=== PATIENT | female | born 1980 | race Caucasian/White ===

== ENCOUNTER 2018-08-07 13:03 | Emergency (ER) | payer OTHER, MEDICAID, SELFPAY ==
[2018-08-07] VITALS (12 sets, daily range): BP systolic 125–147; BP diastolic 66–91; PULSE 66–86; RESP 13–21; TEMP 36.8; O2SAT 96–99
--- NOTE | 2018-08-07 13:15 | ED.GENADUL_ITS ---
Discharge Plan Disposition Patient Disposition: HOME Condition: Stable Discharge Details Chief Complaint: Dizzy/Sync Clinical Impression: Syncope Reason For Visit: NATTY Primary Care Provider: Yomaira Gonzales ED Provider: Flory Dobbins Home Meds and New Rx's Prescriptions: Continued loratadine [Claritin RediTabs] 10 MG tablet,disintegrating 10 mg PO DAILY RF: 0 sertraline 100 mg Tablet 150 mg PO DAILY RF: 0 acyclovir 400 mg Tablet 400 mg PO BID RF: 0 ProAir HFA 90 mcg/actuation Hfa Aerosol Inhaler 1 - 2 puff Inhalation PRN PRNRF: 0 Discharge Instructions Instructions: Syncope (ED) Additional Instructions: Please return immediately to the emergency department if you develop any new or worsening symptoms or if you become otherwise concerned. It is extremely important that you make an appointment to be seen in follow-up for this visit as soon as possible by your primary care doctor. Referrals: Yomaira Gonzales [Primary Care Provider] - Discharge Data Discharge Date/Time-TO BE ENTERED AT DEPARTURE: 08/07/18 14:20 Medical Decision Making Abril Tellez 37-year-old woman who had 2 syncopal episodes today, first while having blood drawn, second within 10 minutes of first episode; patient previously in her usual state of health. On exam patient is very well and nontoxic appearing. Suspect vasovagal syncope. Doubt arrhythmia. Exam/history is not consistent with CVA, sepsis, ACS, PE. Plan for EKG, urine test. Offered IV placement for IV fluid hydration and screening labs, patient declines IV placement given recent syncope with blood draw She reports that she is able to drink fluid easily at this time. Given my low suspicion for metabolic/light disturbance, cardiogenic syncope, I believe it is reasonable to proceed without labs at this time and plan for oral hydration. Patient taking p.o. without issue. test negative. EKG nondiagnostic. Patient reports feeling much better. Orthostatic vital signs okay. Patient w alking about the emergency department without issue, requesting discharge. Likely diagnosis of vasovagal syncope secondary to phlebotomy. I had a lengthy discussion with the patient regarding return to emergency department precautions and importance of outpatient follow-up with her primary care doctor. She verbalizes understanding of the plan is amenable. Medical Records Medical records reviewed: Yes I reviewed the patient's medical records. Lab Data Lab results reviewed: Yes I reviewed the patient's lab results. 08/07/18 13:44 Urine - Reflex from Ua Urine Culture - Final Gram Positive Tonya,Mixed Laboratory Tests Range/Units 08/07/18 08/07/18 11:30 13:44 Creatinine (0.55-1.02) mg/dL 0.84 Estimated GFR/1.73 m2 (mL/min/1.73m2) >= 60.00 Urine Color (Yellow) Yellow Urine Clarity Clear Urine pH (5-8) 6.5 Ur Specific [place] (1.005-1.025) 1.015 Urine Protein (Negative) mg/dL Trace H Urine Ketones (Negative) mg/dL Negative Urine Blood (Negative) Negative Urine Nitrite (Negative) Negative Urine Bilirubin (Negative) Negative Urine Urobilinogen (Up TO 0.2) EU/dL 0.2 Ur Leukocyte Esterase (Negative) Negative Urine RBC (0-2) 0-2 Urine WBC (0-5) HPF 5-10 Ur Epithelial Cells (Negative) HPF Few Urine Crystals (Negative) HPF Negative Urine Bacteria (Negative) HPF Few Urine Casts (Negative) LPF Negative Urine Mucus (Negative) Negative Ur Culture Indicated? Yes Urine Glucose (Negative) mg/dL Negative ECG Data Attestation: I personally reviewed and interpreted this ECG (s) as follows: Interpretation: EKG shows sinus rhythm at 63, normal axis, no acute ischemic changes, nondiagnostic EKG HPI General Mode of arrival: EMS . Date/Time Provider Initiated Documentation: 08/07/18 13:14 . Limitations to Documentation: no limitations . Information obtained by: patient, RN/MD, EMS, RN notes reviewed and old records reviewed . HPI Narrative: Abril Tellez is a 37-year-old man with history of anxiety, depression think the emergency department for syncopal episode. Patient was having routine blood draw as an outpatient. She reports that while blood was being drawn, she began to feel nauseous, have tingling in her hands, and had tunnel vision. She felt as if she would faint. Per phlebotomy staff, patient did faint. Both of consciousness for less than 1 minute. Upon patient regaining consciousness, she was kept flat for a few minutes. When staff tried to sit her up again, patient again had same presyncopal symptoms and had a repeat syncopal episode. Second loss of consciousness was less than 1 minute. EMS was called. Patient reports that she currently feels somewhat lightheaded, but better than she did during the blood draw. Patient reports that prior to the blood draw she had no symptoms and was feeling in her usual state of health. She has had no recent illnesses. Has been eating and drinking as usual, although did not eat as much as usual this morning due to being in a hurry. Related Data Home Medications Medication Instructions Recorded Confirmed loratadine [Claritin RediTabs] 10 mg PO DAILY tab-cap 02/06/16 08/07/18 ProAir HFA 1 - 2 puff INHALATION PRN PRN 08/07/18 08/07/18 acyclovir 400 mg PO BID 08/07/18 08/07/18 sertraline 150 mg PO DAILY 08/07/18 08/07/18 Allergies Allergy/AdvReac Type Severity Reaction Status Date / Time No Known Allergies Allergy Unverified 08/07/18 13:12 General Stated Complaint: Dizzy/Sync MARCIN: 2 Review of Systems Review of Systems Constitutional: denies fevers Eyes: denies eye pain ENT: denies facial pain, dental pain, sore throat Cardiovascular: denies chest pain, edema, palpitations Respiratory: denies SOB, cough GI: denies abdominal pain, vomiting, diarrhea, reports nausea now resolved : denies flank pain MSK: denies back pain, neck pain, arthralgias, myalgias Skin: denies rash Neuro: denies headaches, weakness PFSH Surgical History section Tubal Ligation, Social History Smoking and Tabacco status: Former Tobacco Use Exam Narrative Exam Narrative: Constitutional: well and [id number], pleasant, conversing normally HENT: head atraumatic/normocephalic/normal inspection, mucous membranes moist Eyes: conjunctiva normal, sclera normal, pupils 3mm b/l Neck: no stridor, normal ROM, trachea midline Chest: normal inspection Resp: normal work of breathing, LCTAB Cardio: normal rate, normal rhythm, no murmur appreciated GI: abdomen soft, non-tender, non-distended Back: normal inspection, no rash Skin: warm, dry, normal color, no rash Neuro: alert, not altered, grossly non-focal, normal tone Ext: no edema, no posterior calf tenderness palpation Psych: normal mood, normal affect, normal behavior Course Vital Signs Temperature 36.8 C 08/07/18 13:05 Pulse 66 08/07/18 13:05 Respiratory Rate 16 08/07/18 13:05 Blood Pressure 129/71 08/07/18 13:05 Pulse Oximetry 98 08/07/18 13:05 Temperature 36.8 C 08/07/18 13:05 Temperature Source Skin 08/07/18 13:05 Pulse 66 08/07/18 13:05 Respiratory Rate 16 08/07/18 13:05 Blood Pressure 129/71 08/07/18 13:05 Blood Pressure Position Supine 08/07/18 13:05 Pulse Oximetry 98 08/07/18 13:05 Oxygen Delivery Method Room Air 08/07/18 13:05 Oxygen Flow Rate 0 08/07/18 13:05 Pain Level 0 08/07/18 13:05
[2018-08-07 15:13] LABS: Bilirubin Negative (Negative); Blood Negative (Negative); Clarity Clear; Glucose Negative (Negative); Ketones Negative (Negative); Leukocyte Esterase Negative (Negative); Nitrite Negative (Negative); Specific Gravity 1.015 (1.005-1.025); Urobilinogen 0.2 EU/dL (Up TO 0.2); pH 6.5 (5-8)
[2018-08-07 15:30] LABS: Bacteria Few HPF (Negative); C & S Indicated? Yes; Casts Negative LPF (Negative); Crystals Negative HPF (Negative); Epithelial Cells Few HPF (Negative); Mucus Negative (Negative); RBC 0-2 (0-2)
[2018-08-07 21:29] LABS: CREATININE 0.84 mg/dL (0.55-1.02)
== END 2018-08-07 14:20 | disposition home or self-care (01) ==
PROVIDERS: Emergency Provider Student in an Organized Health Care Education/Training Program; PCP Nurse Practitioner Family
DX: R55 Syncope and collapse (principal)
CPT/HCPCS: 36415; 81025; 93005; 99284; 81003; 81015; 82565; 87086; 93010

== ENCOUNTER 2019-01-24 18:38 | Emergency (ER) | payer OTHER, MEDICAID, SELFPAY ==
[2019-01-24] VITALS (33 sets, daily range): BP systolic 124–146; BP diastolic 71–91; PULSE 62–74; RESP 11–29; TEMP 36.8; O2SAT 93–100
[2019-01-24 19:16] LABS: Abs Immature Grans 0.02 k/cumm (0.0-0.09); Absolute Basophil Count 0.03 k/cumm (0.0-0.2); Absolute Eosinophil Count 0.24 k/cumm (0.0-0.7); Absolute Lymphocyte Count 1.71 k/cumm (1.2-3.4); Absolute Monocyte Count 0.52 k/cumm (0.11-0.7); Absolute Neutrophil Count 7.84 k/cumm (1.2-6.7); Basophils % 0.3; Eosinophils % 2.3; HGB 12.6 g/dL (12.0-15.5); Immature Grans % 0.2; Lymphocytes % 16.5; Mean Corp. HGB Concentration 33.2 g/dL (32.0-36.0); Mean Corpuscular Hemoglobin 27.9 pg (27.0-33.0); Mean Corpuscular Volume 84.3 fL (80-95); Mean Platelet Volume 9.6 fL (8.0-11.0); Neutrophils % 75.7; Platelet Count 287 x1000/uL (130-400); RBC 4.51 m/cumm (4.00-5.20); RBC Distribution Width 12.9 % (11.7-14.6); White Blood Cell Count 10.36 k/cumm (4.4-10.8)
[2019-01-24] MEDS: Ondansetron 4 MG/2 ML VIAL IVP (19:19)
[2019-01-24] MEDS: Normal Saline 1,000 ML 1000 ML IV (19:19)
[2019-01-24 19:34] LABS: ALT 28 U/L (12-78); AST 18 U/L (15-37); Albumin 3.9 g/dL (3.4-5.0); Alkaline Phosphatase 96 U/L (46-116); Anion Gap 9.5 mmol/L (3-11); BUN 12 mg/dL (7-18); Bilirubin, Total 0.2 mg/dL (0.2-1.0); CO2 27.5 mmol/L (21.0-32.0); CREATININE 0.85 mg/dL (0.55-1.02); Calcium 9.4 mg/dL (8.5-10.1); Chloride 103 mmol/L (98-107); Glucose 109 mg/dL (70-100); Potassium 3.7 mmol/L (3.5-5.1); Sodium 140 mmol/L (136-145); Total Protein 7.7 g/dL (6.4-8.2)
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
--- NOTE | 2019-01-24 19:38 | DI.CT_ITS ---
SYMPTOM/DIAGNOSIS: RIGHT SIDED FACIAL TRAUMA NONCONTRAST HEAD CT: No intracranial hemorrhage or skull fracture is seen. The ventricles are normal in size. There is no evidence of mass or fluid collection. The sinuses and mastoid air cells appear clear. IMPRESSION: Negative head CT. MAXILLOFACIAL CT: The globes are intact. No orbital or facial fractures are seen. There is some soft tissue swelling lateral to the right orbit. There is mucous retention at the floors of both maxillary sinuses. The temporomandibular joints appear intact. IMPRESSION: Soft tissue swelling near the right orbit. No evidence of facial fracture. Incidental chronic sinus disease.
[2019-01-24 19:55] LABS: ETHANOL BLOOD < 3.0 mg/dL (<3)
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
[2019-01-24] MEDS: Ketorolac 15 MG/ML VIAL IVP (20:20)
== END 2019-01-24 21:02 | disposition home or self-care (01) ==
PROVIDERS: Emergency Provider Nurse Practitioner Family; PCP Nurse Practitioner Family
DX: S06.0X0A Concussion without loss of consciousness, initial encounter (principal); S00.211A Abrasion of right eyelid and periocular area, initial encounter; W22.8XXA Striking against or struck by other objects, initial encounter; Y93.16 Activity, rowing, canoeing, kayaking, rafting and tubing; R11.0 Nausea; R51 Headache
CPT/HCPCS: 36415; 80053; 96361; 96374; 96375; 99284; 70450; 70486; 80320; 85025; J1885; J2405

== ENCOUNTER 2020-09-04 12:21 | Observation (INO) | payer OTHER, MEDICAID, SELFPAY ==
[2020-09-04] VITALS (17 sets, daily range): BP systolic 111–151; BP diastolic 59–103; PULSE 64–97; RESP 14–20; TEMP 36–37; O2SAT 92–98
--- NOTE | 2020-09-04 12:24 | W.ED.GENAD ---
Discharge Plan Disposition Patient Disposition: [facility] INPATIENT Condition: Stable Discharge Details Clinical Impression: Acute appendicitis Admit Date/Time: 09/04/20 18:46 Admit Provider: Michael Goff Attending Provider: Michael Goff Primary Care Provider: Yomaira Gonzales ED Provider: Iliana Diez Discharge Data Discharge Date/Time-TO BE ENTERED AT DEPARTURE: 09/04/20 17:25 Medical Decision Making 40-year-old female with a history of obesity, , tubal ligation presents for right-sided abdominal pain since yesterday. Sent from [facility] to rule out possible appendicitis. She is afebrile and appears nontoxic. Abdomen obese. She is tender in the right upper and right lower quadrant. Differential diagnosis includes cholelithiasis, cholecystitis, appendicitis, gastroenteritis, ovarian cyst, diverticulitis. Will place an IV, bolus IV fluids, screening labs, urinalysis, CT abdomen and pelvis and ultrasound. We will give Toradol and Zofran and reassess. Labs reviewed. White blood cell count 12. Remainder of labs unremarkable. Urinalysis negative. Ultrasound negative for acute findings. CT notes findings consistent with appendicitis. Case discussed with surgeon on-call Dr. Goff who will come to the ED with plan for OR. Agrees with Adolfon. Case discussed with patient at bedside. She then began crying, hyperventilating and appeared to be having a panic attack. Patient states she is fearful of surgery. Will order a dose of Ativan and morphine. Patient states she will contact her family. Medical Records Medical records reviewed: Yes I reviewed the patient's medical records. Imaging Data Radiologic Study: Radiologist's impression: US ABDOMEN LIMITED CLINICAL HISTORY: RUQ abd pain, r/o cholecystitis TECHNIQUE: Ultrasound abdomen performed using standard protocol. COMPARISON: No exams were available for comparison FINDINGS: ABDOMINAL AORTA AND IVC: Visualized portions normal caliber. PANCREAS: Normal where visualized. LIVER: There is diffuse increased echogenicity consistent with fatty infiltration. The liver measures 20 cm in length. Hepatopedal flow in the Portal Vein. GALLBLADDER: No evidence of cholelithiasis. No evidence of wall thickening. No pericholecystic fluid identified. BILIARY SYSTEM: Common bile duct measures < 7 mm. No intrahepatic biliary ductal dilation. KEATING'S SIGN: Negative. RIGHT KIDNEY: No evidence of renal calculi. No evidence of hydronephrosis. No renal mass or cyst identified. ASCITES: None seen. IMPRESSION: 1. Hepatic steatosis and hepatomegaly. 2. Findings were discussed with the emergency department on the date of the examination. CT ABDOMEN PELVIS W CLINICAL HISTORY: RUQ/RLQ abd pain, r/o appendicitis, sbo TECHNIQUE: Imaging Protocol: Axial computed tomography images with coronal and sagittal reformatted images were created and reviewed CONTRAST MATERIAL: Intravenous: Omnipaque 350 Contrast volume:100 mL Oral: No COMPARISON: CT ABD PELVIS WITH CONTRAST from 09/09/2016 FINDINGS: ABDOMEN: Lung Bases: Normal where visualized. Liver: There is decreased attenuation of the liver suggestive of fatty infiltration. No measurable mass. Portal, Superior Mesenteric, and Splenic Veins: Unremarkable. Gallbladder and Biliary Tract: No radiodense calculus or dilation. Pancreas: Normal density, no abnormal calcifications or inflammatory process. Spleen: Normal. Adrenals: No masses seen. Kidneys: Normal size, contour and axis. No radiodense stones or obstructive uropathy. No masses seen. Abdominal Aorta: Abdominal portion non-dilated. Bowel: No obstruction or bowel wall thickening. The appendix is thickened measuring 1 cm in diameter. Mild inflammatory stranding is seen in the right lower quadrant. The findings are suggestive of acute appendicitis. No appendicoliths is seen no abscess or free air. Mild diverticulosis of the sigmoid colon but no evidence of acute diverticulitis. Peritoneal Cavity: No ascites, collection or mesenteric inflammatory response. No free air. Lymph Nodes: Within normal limits. Bones: Within normal limits for the patient's age. Soft Tissues: Small fat containing umbilical hernia. PELVIS: Bladder: Symmetric distention, no gross wall thickening. Reproductive Organs: Bilateral functional ovarian cysts. The largest is on the left ovary and measures 2.6 cm. Lymph Nodes: Within normal limits. Bones: Within normal limits for the patient's age. IMPRESSION: 1. Distended appendix to 1.0 cm in diameter with periappendiceal inflammatory changes suggestive of acute appendicitis. No abscess, free air or appendicoliths. 2. Findings were discussed with the emergency department on the date of the examination. Lab Data Lab results reviewed: Yes I reviewed the patient's lab results. Labs: Laboratory Tests Range/Units 09/04/20 09/04/20 09/04/20 12:37 12:50 12:50 WBC (4.4-10.8) 10^3/uL 12.93 H RBC (3.93-5.22) 10^6/uL 4.85 Hgb (11.2-15.7) g/dL 13.5 Hct (36.0-46.0) % 40.9 MCV (80-95) fL 84.3 MCH (27.0-33.0) pg 27.8 MCHC (32.0-36.0) % 33.0 RDW (11.7-14.6) % 12.8 Plt Count (130-400) 10^3/uL 373 MPV (8.0-11.0) fL 9.7 Immature Gran % 0.5 Neutrophils % 66.1 Lymphocytes % 25.8 Monocytes % 5.4 Eosinophils % 1.7 Basophils % 0.5 Nucleated RBC % % 0 Absolute Neutrophils (1.2-6.7) 10^3/uL 8.55 H Absolute Lymphocytes (1.2-3.4) 10^3/uL 3.34 Absolute Monocytes (0.1-0.8) 10^3/uL 0.70 Absolute Eosinophils (0.0-0.7) 10^3/uL 0.22 Absolute Basophils (0.0-0.2) 10^3/uL 0.06 Sodium (136-145) mmol/L 138 Potassium (3.5-5.1) mmol/L 3.6 Chloride (98-107) mmol/L 101 Carbon Dioxide (21.0-32.0) mmol/L 24.3 Anion Gap (3-11) mmol/L 12.7 H BUN (7-18) mg/dL 9 Creatinine (0.55-1.02) mg/dL 0.8 Estimated GFR/1.73 m2 (mL/min/1.73m2) >= 60.00 Glucose (74-106) mg/dL 104 Calcium (8.5-10.1) mg/dL 8.9 Magnesium (1.8-2.4) mg/dL 2.1 Total Bilirubin (0.2-1.0) mg/dL 0.4 AST (15-37) U/L 15 ALT (14-59) U/L 30 Alkaline Phosphatase (46-116) U/L 109 Troponin I (<0.06) ng/mL < 0.05 Total Protein (6.4-8.2) g/dL 8.2 Albumin (3.4-5.0) g/dL 4.0 Lipase (73-393) U/L 96 Urine Color (Yellow) Yellow Urine Clarity (Clear) Clear Urine pH (5-8) 5.5 Ur Specific [place] (1.005-1.025) >= 1.030 H Urine Protein (Negative) mg/dL Negative Urine Ketones (Negative) mg/dL Negative Urine Blood (Negative) Negative Urine Nitrite (Negative) Negative Urine Bilirubin (Negative) Negative Urine Urobilinogen (Up TO 0.2) EU/dL 0.2 Ur Leukocyte Esterase (Negative) Negative Urine Glucose (Negative) mg/dL Negative HPI General Mode of arrival: ambulatory. Date/Time Provider Initiated Documentation: 09/04/20 12:22. Limitations to Documentation: no limitations. Information obtained by: patient. HPI Narrative: Patient is a 40-year-old female with a history of obesity, , tubal ligation presents with abdominal pain since yesterday. Patient states her abdominal pain started in the upper abdomen and then moved to the right mid and lower quadrants today. She states the abdominal pain feels sharp, constant and worse with movement. She states the pain is currently 3/10. She has not taken any medication for pain. She states her last bowel movement was yesterday and small but denies any diarrhea or bleeding. She admits to nausea but denies any vomiting. She denies fever, urinary symptoms, vaginal discharge, known exposure to STDs, recent travel, recent surgery or recent known exposure to coronavirus. Related Data Home Medications Medication Instructions Recorded Confirmed loratadine [Claritin RediTabs] 10 mg PO DAILY tab-cap 02/06/16 09/04/20 acyclovir 400 mg PO BID 08/07/18 09/04/20 albuterol sulfate [ProAir HFA] 1 - 2 puff INHALATION PRN PRN 08/07/18 09/04/20 sertraline 150 mg PO DAILY 08/07/18 09/04/20 ondansetron 4 mg PO Q8H PRN #10 tab 01/24/19 09/04/20 oxycodone-acetaminophen [Endocet] 1 tab PO Q4H PRN #14 tab 09/04/20 Previous Rx's Medication Instructions Recorded ondansetron 4 mg PO Q8H PRN #10 tab 01/24/19 oxycodone-acetaminophen [Endocet] 1 tab PO Q4H PRN #14 tab 09/04/20 Allergies Allergy/AdvReac Type Severity Reaction Status Date / Time No Known Allergies Allergy Unverified 09/04/20 12:30 General MARCIN: 3 Review of Systems All systems reviewed & are unremarkable except as noted in HPI and below Constitutional Constitutional: Reports as per HPI, Denies chills and Denies fever(s) Eyes Eyes: Denies blurry vision ENT Ears, Nose, Mouth, and Throat: Denies dizziness, Denies sore throat and Denies throat swelling Cardiovascular Cardiovascular: Denies chest pain and Denies dyspnea Respiratory Respiratory: Denies cough and Denies dyspnea Gastrointestinal Gastrointestinal: Reports abdominal pain, Denies diarrhea and Denies vomiting Genitourinary Genitourinary: Denies hematuria and Denies dysuria Musculoskeletal Musculoskeletal: Denies back pain and Denies numbness Integumentary/Breasts Skin/Breast: Denies lesions and Denies rash Neurologic Neurologic: Denies dizziness, Denies localized weakness and Denies numbness Allergic/Immunologic Allergic/Immunologic: Denies throat swelling [facility] Medical History Obesity Surgical History section Tubal Ligation, Social History Smoking/Tobacco Use Status: Former Tobacco Use Smoking risk assessment performed?: Yes Alcohol Intake: never Drug use: Daily Substance use type: marijuana Do you feel safe at home: Yes Do you feel safe in your relationship?: Yes Exam Const General: cooperative, healthy appearing and no acute distress [facility] Head: normal to inspection Face and sinus: normal facial exam Eyes General: appearance normal, both eyes and all related structures EOM: EOM intact bilaterally Neck Neck: normal visual inspection and No submandibular swelling Lymphatic: no lymphadenopathy noted Chest Chest: normal inspection of the chest and no tenderness Resp Effort & Inspection: normal respiratory effort and able to speak in complete sentences Auscultation: clear to auscultation bilaterally Cardio Rate: regular rate Rhythm: regular rhythm GI Inspection: normal to inspection and obesity Palpation: soft, not firm, not rigid and tender in the RLQ and in the RUQ Auscultation: hypoactive bowel sounds Skin General skin exam: no rashes or lesions noted Neuro General: patient alert, patient awake and patient oriented x3 Cognition: normal cognition Speech: speech normal Motor: muscle tone normal throughout Sensory Exam: no sensory deficits noted Extrem General: normal to inspection, full ROM, capillary refill normal, no calf tenderness bilaterally and no edema Psych Appearance: grossly normal Mental Status: mental status grossly normal Speech and Movement: speech and movement normal Affect: normal affect
[2020-09-04 12:44] LABS: Bilirubin Negative (Negative); Blood Negative (Negative); Clarity Clear (Clear); Glucose Negative (Negative); Ketones Negative (Negative); Leukocyte Esterase Negative (Negative); Nitrite Negative (Negative); Specific Gravity >= 1.030 (1.005-1.025); Urobilinogen 0.2 EU/dL (Up TO 0.2); pH 5.5 (5-8)
--- NOTE | 2020-09-04 12:45 | DI.US_ITS ---
EXAM: US ABDOMEN LIMITED CLINICAL HISTORY: RUQ abd pain, r/o cholecystitis TECHNIQUE: Ultrasound abdomen performed using standard protocol. COMPARISON: No exams were available for comparison FINDINGS: ABDOMINAL AORTA AND IVC: Visualized portions normal caliber. PANCREAS: Normal where visualized. LIVER: There is diffuse increased echogenicity consistent with fatty infiltration. The liver measure s 20 cm in length. Hepatopedal flow in the Portal Vein. GALLBLADDER: No evidence of cholelithiasis. No evidence of wall thickening. No pericholecystic fluid identified. BILIARY SYSTEM: Common bile duct measures < 7 mm. No intrahepatic biliary ductal dilation. KEATING'S SIGN: Negative. RIGHT KIDNEY: No evidence of renal calculi. No evidence of hydronephrosis. No renal mass or cyst id entified. ASCITES: None seen. IMPRESSION: 1. Hepatic steatosis and hepatomegaly. 2. Findings were discussed with the emergency department on the date of the examination. DATA REPOSITORY:
--- NOTE | 2020-09-04 12:45 | DI.CT_ITS ---
EXAM: CT ABDOMEN PELVIS W CLINICAL HISTORY: RUQ/RLQ abd pain, r/o appendicitis, sbo TECHNIQUE: Imaging Protocol: Axial computed tomography images with coronal and sagittal reformatted images were created and reviewed CONTRAST MATERIAL: Intravenous: Omnipaque 350 Contrast volume:100 mL Oral: No COMPARISON: CT ABD PELVIS WITH CONTRAST from 09/09/2016 FINDINGS: ABDOMEN: Lung Bases: Normal where visualized. Liver: There is decreased attenuation of the liver suggestive of fatty infiltration. No measurable ma ss. Portal, Superior Mesenteric, and Splenic Veins: Unremarkable. Gallbladder and Biliary Tract: No radiodense calculus or dilation. Pancreas: Normal density, no abnormal calcifications or inflammatory process. Spleen: Normal. Adrenals: No masses seen. Kidneys: Normal size, contour and axis. No radiodense stones or obstructive uropathy. No masses seen. Abdominal Aorta: Abdominal portion non-dilated. Bowel: No obstruction or bowel wall thickening. The appendix is thickened measuring 1 cm in diameter. Mild inflammatory stranding is seen in the right lower quadrant. The findings are suggestive of ac mari appendicitis. No appendicoliths is seen no abscess or free air. Mild diverticulosis of the sigm oid colon but no evidence of acute diverticulitis. Peritoneal Cavity: No ascites, collection or mesenteric inflammatory response. No free air. Lymph Nodes: Within normal limits. Bones: Within normal limits for the patient's age. Soft Tissues: Small fat containing umbilical hernia. PELVIS: Bladder: Symmetric distention, no gross wall thickening. Reproductive Organs: Bilateral functional ovarian cysts. The largest is on the left ovary and measur es 2.6 cm. Lymph Nodes: Within normal limits. Bones: Within normal limits for the patient's age. IMPRESSION: 1. Distended appendix to 1.0 cm in diameter with periappendiceal inflammatory changes suggestive of a cute appendicitis. No abscess, free air or appendicoliths. 2. Findings were discussed with the emergency department on the date of the examination. RADIATION DOSE DELIVERED: 1,690.13mGy.cm Total DLP DATA REPOSITORY: All CT scans at this facility are submitted to the National Radiology Data Registry (NRDR) Dose Index Registry (DIR) with the [employer] (ACR). RADIATION OPTIMIZATION: All CT scans at this facility use at least one of these dose optimization te chniques: automated exposure control; mA and/or kV adjustment per patient size (includes targeted exa ms where dose is matched to clinical indication); or iterative reconstruction.
[2020-09-04] MEDS: Normal Saline Flush 10 ML SYR IVP ×4 (12:50→20:32)
[2020-09-04] MEDS: Normal Saline 1,000 ML 1000 ML IV (12:50)
[2020-09-04 12:53] LABS: Abs Immature Grans 0.06 10^3/uL (0.0-0.06); Absolute Basophil Count 0.06 10^3/uL (0.0-0.2); Absolute Eosinophil Count 0.22 10^3/uL (0.0-0.7); Absolute Lymphocyte Count 3.34 10^3/uL (1.2-3.4); Absolute Neutrophil Count 8.55 10^3/uL (1.2-6.7); Basophils % 0.5; Eosinophils % 1.7; HCT 40.9 % (36.0-46.0); HGB 13.5 g/dL (11.2-15.7); Immature Grans % 0.5; Lymphocytes % 25.8; MCH 27.8 pg (27.0-33.0); MCV 84.3 fL (80-95); MPV 9.7 fL (8.0-11.0); Monocytes % 5.4; Neutrophils % 66.1; Nucleated RBC 0 %; Platelet Count 373 10^3/uL (130-400); RBC 4.85 10^6/uL (3.93-5.22); RDW 12.8 % (11.7-14.6); RDW-SD 38.7 fL; WBC 12.93 10^3/uL (4.4-10.8)
[2020-09-04 13:09] LABS: ALT 30 U/L (14-59); AST 15 U/L (15-37); Alkaline Phosphatase 109 U/L (46-116); Anion Gap 12.7 mmol/L (3-11); BUN 9 mg/dL (7-18); Bilirubin, Total 0.4 mg/dL (0.2-1.0); CO2 24.3 mmol/L (21.0-32.0); CREATININE 0.8 mg/dL (0.55-1.02); Calcium 8.9 mg/dL (8.5-10.1); Chloride 101 mmol/L (98-107); Glucose 104 mg/dL (74-106); Lipase 96 U/L (73-393); Magnesium 2.1 mg/dL (1.8-2.4); Potassium 3.6 mmol/L (3.5-5.1); Sodium 138 mmol/L (136-145); Total Protein 8.2 g/dL (6.4-8.2)
[2020-09-04 13:10] LABS: Troponin I < 0.05 ng/mL (<0.06)
[2020-09-04] MEDS: Ondansetron 4 MG/2 ML VIAL IVP ×2 (13:12→20:31)
[2020-09-04] MEDS: Ketorolac 30 MG/ML VIAL IVP (13:12)
[2020-09-04] MEDS: Normal Saline - Diluent 50 ML VIAL IV (15:37)
[2020-09-04] MEDS: Omnipaque 350 MG/ML 50 ML BTL IJ ×2 (15:38→15:39)
[2020-09-04] MEDS: LORazepam 2 MG/ML VIAL 0.5 MG IVP (16:07)
[2020-09-04] MEDS: PIPERACILLIN/TAZO 3.375 GM in Normal Saline 50 ML IVPB (16:20)
--- NOTE | 2020-09-04 16:22 | NUR.NOTE ---
Surgeon at bedside. patient medicated per MD order. 02 saturation decreased to 90 % RA, 2lpm nasal cannula applied O2 sat increased to 98% Nursing Note:
--- NOTE | 2020-09-04 16:55 | W.PM.HP.N ---
Date of service: 09/04/20 Time of Service: 16:31 Assessment and Plan Assessment and plan (1) Acute appendicitis: Start date: 09/04/20 Status: Acute Assessment and plan: 1) CT shows inflamed and dilated appendix, no perforation or free fluid 2) zosyn given 3) IV morphine and ativan given 4) to OR for emergency laparscopic appendectomy, possible open. risks include bleeding and leak. Patient in agreement with the plan of care History of Present Illness History of Present Illness Chief Complaint: abdominal pain Narrative: patient with abdominal pain. pain is in the RLQ. Started as mid/upper pain yesterday. Briefly relieved but then returned throughout the day today. Worse in RLQ. described as severe, no prior history. associated nausea, no vomiting or diarrhea. nothing makes it better or worse. Asked by ER to see re: acute appendicitis. Review of Systems Constitutional Constitutional: Denies fever(s) and Denies weakness Eyes Eyes: Denies change in vision and Denies loss of vision ENT Ears, Nose, Mouth, and Throat: Denies dysphagia and Denies sore throat Cardiovascular Cardiovascular: Denies chest pain and Denies dyspnea Respiratory Respiratory: Denies chest congestion, Denies cough and Denies dyspnea Gastrointestinal Gastrointestinal: Reports abdominal pain, Denies dysphagia, Denies diarrhea and Reports nausea Genitourinary Genitourinary: Denies difficulty voiding Musculoskeletal Musculoskeletal: Reports atrophy and Reports deformity Integumentary/Breasts Skin/Breast: Denies erythema and Denies rash Neurologic Neurologic: Denies loss of vision and Denies weakness Psychiatric Psychiatric: Reports anxiety [facility] Medical History Obesity Surgical History section Tubal Ligation, Social History Smoking/Tobacco Use Status: Former Tobacco Use Smoking risk assessment performed?: Yes Alcohol Intake: never Drug use: Daily Substance use type: marijuana Do you feel safe at home: Yes Do you feel safe in your relationship?: Yes Meds Home Medications and Allergies Allergies Allergy/AdvReac Type Severity Reaction Status Date / Time No Known Allergies Allergy Unverified 09/04/20 12:30 Home Medications Medication Instructions Recorded Confirmed Type loratadine [Claritin RediTabs] 10 mg PO DAILY tab-cap 02/06/16 09/04/20 History acyclovir 400 mg PO BID 08/07/18 09/04/20 History albuterol sulfate [ProAir HFA] 1 - 2 puff INHALATION PRN PRN 08/07/18 09/04/20 History sertraline 150 mg PO DAILY 08/07/18 09/04/20 History ondansetron 4 mg PO Q8H PRN #10 tab 01/24/19 09/04/20 Rx Exam Const General: cooperative and no acute distress Nutritional Appearance: obese Orientation: alert, awake and oriented x3 HENMT Head: normal to inspection, normocephalic and atraumatic Eyes General: appearance normal, both eyes and all related structures Sclera: sclerae normal Chest Chest: normal inspection of the chest and no crepitus Resp Effort & Inspection: normal respiratory effort and able to speak in complete sentences Cardio Rate: regular rate Rhythm: regular rhythm GI Inspection: normal to inspection, no edema, non-distended, obesity and no visible herniation Palpation: soft and tender in the RLQ and at McBurney's point; with no rebound tenderness Skin General skin exam: no rashes or lesions noted and elasticity normal Extrem General: normal to inspection and full ROM Psych Appearance: grossly normal and well kempt Speech and Movement: speech and movement normal Mood: anxious mood Results Labs Result diagrams: 09/04/20 12:50 09/04/20 12:50 Labs: Laboratory Results - last 24 hr 09/04/20 09/04/20 09/04/20 12:37 12:50 12:50 WBC 12.93 H RBC 4.85 Hgb 13.5 Hct 40.9 MCV 84.3 MCH 27.8 MCHC 33.0 RDW 12.8 Plt Count 373 MPV 9.7 Immature Gran % 0.5 Neutrophils % 66.1 Lymphocytes % 25.8 Monocytes % 5.4 Eosinophils % 1.7 Basophils % 0.5 Nucleated RBC % 0 Absolute Neutrophils 8.55 H Absolute Lymphocytes 3.34 Absolute Monocytes 0.70 Absolute Eosinophils 0.22 Absolute Basophils 0.06 Sodium 138 Potassium 3.6 Chloride 101 Carbon Dioxide 24.3 Anion Gap 12.7 H BUN 9 Creatinine 0.8 Estimated GFR/1.73 m2 >= 60.00 Glucose 104 Calcium 8.9 Magnesium 2.1 Total Bilirubin 0.4 AST 15 ALT 30 Alkaline Phosphatase 109 Troponin I < 0.05 Total Protein 8.2 Albumin 4.0 Lipase 96 Urine Color Yellow Urine Clarity Clear Urine pH 5.5 Ur Specific [place] >= 1.030 H Urine Protein Negative Urine Ketones Negative Urine Blood Negative Urine Nitrite Negative Urine Bilirubin Negative Urine Urobilinogen 0.2 Ur Leukocyte Esterase Negative Urine Glucose Negative Last Vital Signs Temp 98.6 F 09/04/20 16:49 Pulse 64 09/04/20 16:49 Resp 16 09/04/20 16:49 BP 116/66 09/04/20 16:49 Pulse Ox 97 09/04/20 16:49 COVID-19 Screening Have you, or household traveled for leisure in last 14 days?: No Had IN PERSON contact w/suspected or confirmed C-19 person: No
[2020-09-04] MEDS: Lactated Ringers 1,000 ML 30 ML IV ×2 (17:30→23:32)
--- NOTE | 2020-09-04 18:23 | APP_PTH ---
PATIENT: Abril Tellez LOC: U#:[id number] AGE/SX: 40/F ROOM: RE09/04/[address]: Michael Goff MD : 1980 BED: A DIS: 09/05/2020 SPEC #: [id number] RECD: 09/05/20 12:36 STATUS: LOPEZ REQ #: [id number] CURLY: 09/04/20 18:[address]: Michael Goff DEPT: Surgical Specimen RECD BY: Lisandra Head ENTERED: 09/05/20 12:37 SP TYPE: Appendix OTHR DR: Yomaira Gonzales Tissues: 1 - APPENDIX NOT INCIDENTAL Procedures: GROSS AND MICRO LEVEL 3 Comments: [id number]
[2020-09-04] MEDS: Lidocaine 1% Multi-Dose 50 ML VIAL (18:33)
--- NOTE | 2020-09-04 18:39 | W.PM.OP ---
Date of service: 09/04/20 Time of Service: 18:00 Operative Note Operative Note DATE OF PROCEDURE: 09/04/20 PRE-OP DIAGNOSIS: acute appendicitis POST-OP DIAGNOSIS: same PROCEDURE: laparoscopic emergency appendectomy SURGEON: Michael Goff ANESTHESIA TYPE: General LMA/ETT Refer to Anesthesia Record ESTIMATED BLOOD LOSS: 3.0 PATHOLOGY: other (appendectomy) COMPLICATIONS: None Patient was transported to: observation Patient's condition: stable Indications: acute appendicitis Findings: thickened and inflamed appendix Procedure Description: supine, patient prepped/draped sterily and timeout performed. veress needle entry performed at pham's point with neg saline drop and 8mmHg opening. optiview technique used to gain access through 1.5 cm supraumbilical transverse incision. no entry injury seen. 5mm ports placed at suprapubic and LLQ area under direct vision. lower midline omental adnesions taken down with ligasure. cecum was mobilized off the lateral abdominal wall and the appendix was identified. adherence to TI was dissected bluntly and carefully. the mesoappendix was divided with the ligasure. endostapler was placed across the base of the appendix and fired. staple line appeared intact and bowel healthy. appendix placed in an endocatch bag and removed from abdomen. final inspection revealed no abnormality. transfascial incision closed with 0 vicryl figure of 8. skin closed with 4-0 monocryl. patient awakened and taken to PACU in stable condition. all counts correct.
--- NOTE | 2020-09-04 19:00 | W.PM.DSUDISC ---
Discharge Plan Disposition Patient Disposition: HOME Condition: Stable Discharge Details Attending Provider: Michael Goff Primary Care Provider: Yomaira Gonzales Home Meds and New Rx's Prescriptions: New oxycodone-acetaminophen [Endocet] 5-325 mg tablet 1 tab PO Q4H PRNQty: 14 RF: 0 No Action loratadine [Claritin RediTabs] 10 MG tablet,disintegrating 10 mg PO DAILY RF: 0 sertraline 100 mg Tablet 150 mg PO DAILY RF: 0 acyclovir 400 mg Tablet 400 mg PO BID RF: 0 albuterol sulfate [ProAir HFA] 90 mcg/actuation Hfa Aerosol Inhaler 1 - 2 puff Inhalation PRN PRNRF: 0 ondansetron 4 mg tablet,disintegrating 4 mg PO Q8H PRN (Reason: nausea and vomiting) Qty: 10 RF: 0 Discharge Instructions Instructions: Laparoscopic Appendectomy (DC) DS: Diagnosis Discharge Diagnosis (1) Acute appendicitis: Status: Acute
[2020-09-04] MEDS: fentaNYL 100 MCG/2 ML VIAL IVP ×2 (19:20→19:30)
[2020-09-04] MEDS: Acyclovir 400 MG TAB PO (20:31)
[2020-09-04] MEDS: HYDROmorphone 2 MG/ML VIAL 0.5 MG IVP (20:31)
[2020-09-04 20:41] LABS: Source Nasal/Nares
[2020-09-04 22:33] LABS: COVID-19 PCR Negative (Negative)
[2020-09-05] MEDS: HYDROcodone 5/Acetaminophen 325 TAB PO ×2 (02:53→08:18)
[2020-09-05 04:02] VITALS: BP 126/78; PULSE 66; RESP 18; TEMP 36.5; O2SAT 95
[2020-09-05 08:03] VITALS: BP 117/71; PULSE 70; RESP 18; TEMP 36.5; O2SAT 95
[2020-09-05] MEDS: Sertraline 50 MG TAB 150 MG PO (08:17)
[2020-09-05] MEDS: Acyclovir 400 MG TAB PO (08:18)
--- NOTE | 2020-09-08 16:09 | W.PM.DS.N ---
Date of service: 09/11/20 DS: Diagnosis Discharge Diagnosis (1) Acute appendicitis: Status: Acute Discharge Plan Disposition Patient Disposition: HOME Condition: Stable Discharge Details Reason For Visit: ACUTE APPENDICITIS Admit Date/Time: 09/04/20 18:46 Admit Provider: Michael Goff Attending Provider: Michael Goff Primary Care Provider: [facility] Course Hospital Course: patient admitted and taken urgently to the OR with acute appendicitis on 09/04/20. Tolerated procedure well and was recovered fully. Started on diet and PO meds and discharged home Home Meds and New Rx's Prescriptions: New oxycodone-acetaminophen [Endocet] 5-325 mg tablet 1 tab PO Q4H PRNQty: 14 RF: 0 No Action loratadine [Claritin RediTabs] 10 MG tablet,disintegrating 10 mg PO DAILY RF: 0 sertraline 100 mg Tablet 150 mg PO DAILY RF: 0 acyclovir 400 mg Tablet 400 mg PO BID RF: 0 albuterol sulfate [ProAir HFA] 90 mcg/actuation Hfa Aerosol Inhaler 1 - 2 puff Inhalation PRN PRNRF: 0 ondansetron 4 mg tablet,disintegrating 4 mg PO Q8H PRN (Reason: nausea and vomiting) Qty: 10 RF: 0 Discharge Instructions Instructions: Laparoscopic Appendectomy (DC) Stand Alone Forms: Nursing Discharge Form Referrals: Grace Nichols DO [OSTEOPATHIC DOCTOR] - (call Tuesday to make appointment.) Activity:: Activity as Tolerated Equipment/Supplies:: No Equipment Needed Diet:: As Tolerated Discharge Orders Discharge Orders: Discharge Order (Routine); Ordered 09/05/20 Ordered By: Michael Goff Discharge Data Discharge Date/Time-TO BE ENTERED AT DEPARTURE: 09/05/20 13:05 DS: Summary Time Spent with Patient providing and/or coordinating discharge services: Less than 30 minutes Status at Discharge Functional status at discharge: independent ambulation Overall status at discharge: patient is progressing back to baseline Mental Status: mental status grossly normal Speech and Movement: speech and movement normal Mood: congruent mood Affect: normal affect Exam Narrative Exam Narrative: NAD RRR S1S2 CTA B S/ND/Appropriately tender Incisions dressed and dry Psych Mental Status: mental status grossly normal Speech and Movement: speech and movement normal Mood: congruent mood Affect: normal affect DS: Data Vitals/I&O Vitals and I&O: Vital Signs Temperature 97.7 F 09/05/20 08:03 Temperature Source Tympanic 09/05/20 08:03 Pulse 70 09/05/20 08:03 Pulse Rhythm Regular 09/05/20 14:19 Pulse Strength Normal 09/04/20 15:49 Respiratory Rate 18 09/05/20 08:03 Respiratory Effort Non-Labored 09/05/20 14:19 Respiratory Depth Normal 09/05/20 14:19 Respiratory Pattern Normal 09/05/20 14:19 Blood Pressure 117/71 09/05/20 08:03 Blood Pressure Mean 82 09/04/20 16:49 Blood Pressure Position Supine 09/04/20 16:49 Pulse Oximetry 95 09/05/20 08:03 Respiratory End-tidal CO2 47 09/04/20 19:36 Oxygen Delivery Method Room Air 09/05/20 08:03 Oxygen Flow Rate 0 09/05/20 08:03 Pain Level 2 09/05/20 08:03 Comment 09/04/20 20:49 [facility] Medical History Obesity Surgical History section Tubal Ligation, Social History Smoking/Tobacco Use Status: Former Tobacco Use Smoking risk assessment performed?: Yes Alcohol Intake: never Drug use: Daily Substance use type: marijuana Do you feel safe at home: Yes Do you feel safe in your relationship?: Yes
== END 2020-09-05 13:05 | disposition home or self-care (01) ==
LOC: ER 15:44 → DSU 17:22 → MS 19:56
PROVIDERS: Admitting Provider Surgery; Emergency Provider Physician Assistant; PCP Nurse Practitioner Family; Visit Provider Surgery
PROC: 0DTJ4ZZ Resection of Appendix, Percutaneous Endoscopic Approach (ICD-10-PCS; CPT 44970; principal; 2020-09-04 17:30)
DX: K35.80 Unspecified acute appendicitis (principal); E66.9 Obesity, unspecified; Z68.41 Body mass index [BMI] 40.0-44.9, adult
CPT/HCPCS: 44970; 36415; 80053; 81025; 83690; 96361; 96365; 96375; 99235; 99238; 99285; U0003; 74177; 76705; 81003; 83735; 84484; 85025; 88304; G0378; J1100; J1885; J2060; J2250; J2405; J2543; J2704; J3010; Q9967

== ENCOUNTER 2021-04-13 02:11 | Outpatient (CLI) | payer OTHER, MEDICAID, SELFPAY ==
[2021-04-13 12:52] LABS: Source Nasal/Nares
[2021-04-13 18:06] LABS: COVID-19 PCR Negative (Negative)
== END 2021-04-13 02:12 | disposition home or self-care (01) ==
PROVIDERS: PCP Nurse Practitioner Family; Visit Provider Student in an Organized Health Care Education/Training Program
DX: Z20.822 Contact with and (suspected) exposure to COVID-19 (principal); Z01.818 Encounter for other preprocedural examination
CPT/HCPCS: 87635

== ENCOUNTER 2021-04-14 10:17 | Day surgery (SDC) | payer OTHER, MEDICAID, SELFPAY ==
--- NOTE | 2021-04-14 10:12 | W.PM.DSUDISC ---
Discharge Plan Disposition Patient Disposition: HOME Condition: Good Discharge Details Reason For Visit: Right middle trigger finger Attending Provider: Stalin Lopez Primary Care Provider: Yomaira Gonzales Home Meds and New Rx's Prescriptions: New acetaminophen 500 mg tablet 500 mg PO Q6H PRN (Reason: pain) Qty: 60 RF: 2 ibuprofen 600 mg tablet 600 mg PO TID PRN (Reason: pain) Qty: 60 RF: 0 Continued loratadine [Claritin RediTabs] 10 MG tablet,disintegrating 10 mg PO DAILY RF: 0 sertraline 100 mg Tablet 150 mg PO DAILY RF: 0 acyclovir 400 mg Tablet 400 mg PO BID RF: 0 albuterol sulfate [ProAir HFA] 90 mcg/actuation Hfa Aerosol Inhaler 1 - 2 puff Inhalation PRN PRNRF: 0 ondansetron 4 mg tablet,disintegrating 4 mg PO Q8H PRN (Reason: nausea and vomiting) Qty: 10 RF: 0 Discharge Instructions Stand Alone Forms: John Zuniga Finger Release Referrals: Stalin Lopez MD [ [facility]] - Activity:: Elevate Remove Dressings/Wound Care:: 48 hours Shower/Bathe:: 48 hours Diet:: As Tolerated Discharge Orders Discharge Orders: Discharge Order (Routine); Ordered 04/14/21 Ordered By: Grace Fraser DS: Diagnosis Discharge Diagnosis (1) Trigger finger, right middle finger: Status: Acute
[2021-04-14 10:37] VITALS: BP 149/88; PULSE 72; RESP 22; TEMP 36.8; O2SAT 98
--- NOTE | 2021-04-14 20:19 | ROE_ITS ---
Date of service: 04/14/21 Time of Service: 13:19 Operative Note Operative Note DATE OF PROCEDURE: 04/14/21 PRE-OP DIAGNOSIS: Right middle finger trigger finger POST-OP DIAGNOSIS: same PROCEDURE: Trigger Finger Release - Right Middle Finger SURGEON: Stalin Lopez ANESTHESIA TYPE: Local By Surgeon Refer to Anesthesia Record PATHOLOGY: none sent TOURNIQUET TIME: 0 COMPLICATIONS: None Patient was transported to: same day Patient's condition: stable Indications: I have seen Abril in clinic for symptoms of a trigger finger. The catching, clicking, locking, and pain limited function. The diagnosis of trigger finger was evident. The symptoms had not responded to conservative measures. I discussed trigger finger release with the patient. I reviewed the risks of the procedure to include, but not limited to, bleeding, infection, pain, stiffness, incomplete release, damage to nerves or vessels, continued catching, recurrence. Despite these risks, the patient elected to proceed. Findings: There was a tightened A1 placido which was released. The flexor tendons were inspected and the patient was able to move the finger without any catching, clicking, or locking. Procedure Description: Abril was greeted in the preoperative holding area where the correct side was identified and marked. The consent was reviewed with the patient and signed. All questions were answered. She was taken back to the operating room. The patient was placed into the supine position on the operating room table with the right arm on an arm board. All bony prominences were well padded. No prophylactic antibiotics were administered since this was a clean, elective hand surgical case. The right arm was then prepped with Chloraprep and draped in a standard fashion with stockinette and extremity drape. A timeout to confirm correct identity, side and site, procedure, allergies, anesthesia, and medical concerns was performed. The surgical site was marked as a longitudinal incision directly over the A1 placido of the involved digit. This was confirmed with palpation during finger flexion. This area, overlying the metacarpal head, was then anesthetized with 1% Lidocaine. The patient tolerated this well and once the anesthetic had setup, the procedure began. A longitudinal incision was made through skin only, approximately 1cm. The deep tissues were dissected bluntly. Once the A1 placido and flexor tendons were identified the soft tissue including neurovascular structures were retracted medially and laterally. There were no crossing structures over the A1 placido. The proximal edge of the placido was identified and the placido was incised with tenotomy scissors. There was a release of the tendons once this was fully released. The patient was asked to move the finger into deep flexion and back to extension. There was no recreation of the pre- operative symptoms. The hand was then once more inspected for any A0 placido or area of possible constriction. The wound was then irrigated and the skin was closed with a 4-0 Nylon. This was dressed with gauze and a Conform dressing. The patient tolerated the procedure well, although with signficant anxiety,and was returned to the Same Day Surgery area in a stable condition suffering no known complication.
== END 2021-04-14 13:52 | disposition home or self-care (01) ==
LOC: SUR 10:17
PROVIDERS: PCP Nurse Practitioner Family; Visit Provider Student in an Organized Health Care Education/Training Program
PROC: (CPT 26055; principal; 2021-04-14 13:45)
DX: M65.331 Trigger finger, right middle finger (principal)
CPT/HCPCS: 26055

== ENCOUNTER 2022-03-25 07:56 | Emergency (ER) | payer OTHER, MEDICAID, SELFPAY ==
[2022-03-25 08:04] VITALS: BP 149/94; PULSE 74; RESP 24; TEMP 36.7; O2SAT 98
--- NOTE | 2022-03-25 08:25 | ED.GENADUL_ITS ---
Discharge Plan Disposition Patient Disposition: HOME Condition: Stable Discharge Details Clinical Impression: Back pain Primary Care Provider: Yomaira Gonzales ED Provider: Lui Obrien Home Meds and New Rx's Prescriptions: New cyclobenzaprine 10 mg tablet 10 mg PO TID PRN (Reason: muscle spasm) Qty: 20 0RF Continued loratadine [Claritin RediTabs] 10 MG tablet,disintegrating 10 mg PO DAILY sertraline 100 mg Tablet 150 mg PO DAILY acyclovir 400 mg Tablet 400 mg PO BID albuterol sulfate [ProAir HFA] 90 mcg/actuation Hfa Aerosol Inhaler 1 - 2 puff Inhalation PRN PRN acetaminophen 500 mg tablet 500 mg PO Q6H PRN (Reason: pain) Qty: 60 2RF ondansetron 4 mg tablet,disintegrating 4 mg PO Q8H PRN (Reason: nausea and vomiting) Qty: 10 0RF Label Comments: Pt states she no longer uses this. Held ibuprofen 600 mg tablet 600 mg PO TID PRN (Reason: pain) Qty: 60 0RF Hold Instructions: Do not take until 5 PM this evening ibuprofen 800 mg Tablet 800 Hold Instructions: Do not take until 5 PM this evening Discharge Instructions Instructions: Back Pain (ED) Additional Instructions: Continue to use your ibuprofen and take 800 mg every 8 hours as needed for pain. Please hold this medication no until 5 PM this evening due to the pain medication you received in the emergency department. You may continue to take acetaminophen just do not exceed 4000 mg in a 24-hour period. If you develop any new or significant worsening of symptoms please return immediately to the emergency department for reassessment otherwise perform gentle stretching and range of motion of your back. Stand Alone Forms: Work Release Referrals: Yomaira Gonzales [Primary Care Provider] - 1 week (As needed for reassessment) Discharge Data Discharge Date/Time-TO BE ENTERED AT DEPARTURE: 03/25/22 09:19 Medical Decision Making Patient here for back pain. LOW risk for ABDOMINAL AORTIC ANEURYSM, CAUDA EQUINA SYNDROME, EPIDURAL MASS LESION, SPINAL STENOSIS, OR HERNIATED DISK CAUSING SEVERE STENOSIS, thus I consider the discharge disposition reasonable. We have discussed the diagnosis and risks, and we agree with discharging home to follow- up with their primary doctor. We also discussed returning to the Emergency Department immediately if new or worsening symptoms occur. We have discussed the symptoms which are most concerning (e.g., saddle anesthesia, urinary or bowel incontinence or retention, changing or worsening pain) that necessitate immediate return. During emergency department stay I did give patient ketorolac that did provide some benefit. Recommended continued use of NSAIDs but due to severity of discomfort gave patient to go bottle of oxycodone with limited supply and discussed risk versus benefit with patient and see no concern for short-term narcotic use. After discussion of diagnosis and plan of care patient has no further needs, questions, or concerns and states clear understanding to return to the emergency department for any worsening symptoms. This documentation was generated using [employer] dictation system, please disregard any oddities of phrase or misspellings. HPI General Mode of arrival: wheelchair . Date/Time Provider Initiated Documentation: 03/25/22 08:16 . Limitations to Documentation: no limitations . Information obtained by: patient and RN notes reviewed . History of Present Illness 41 year old F presents to the emergency department with the chief complaint of Back pain , described as severe and similar to prior episodes, Quality is described as sharp, and is localized to the back. Patient extremity (Right). Patient started experiencing this day(s) (1) and it has been constant. No relieving factors improve symptom(s), Movement worsens symptoms . Patient notes no other symptoms.. Patient did receive the following treatments prior to arrival, none Related Data Home Medications Medication Instructions Recorded Confirmed loratadine 10 mg disintegrating 10 mg PO DAILY 02/06/16 04/24/21 tablet (Claritin RediTabs) acyclovir 400 mg tablet 400 mg PO BID 08/07/18 04/24/21 albuterol sulfate 90 mcg/actuation 1 - 2 puff inhalation PRN PRN 08/07/18 04/24/21 aerosol inhaler (ProAir HFA) sertraline 100 mg tablet 150 mg PO DAILY 08/07/18 04/24/21 ondansetron 4 mg disintegrating 4 mg PO Q8H PRN nausea and 01/24/19 04/24/21 tablet vomiting #10 tabs acetaminophen 500 mg tablet 500 mg PO Q6H PRN pain #60 tabs 04/14/21 04/24/21 ibuprofen 600 mg tablet 600 mg PO TID PRN pain #60 tabs 04/14/21 04/24/21 ibuprofen 800 mg tablet 800 04/14/21 04/24/21 cyclobenzaprine 10 mg tablet 10 mg PO TID PRN muscle spasm #20 03/25/22 tabs Previous Rx's Medication Instructions Recorded ondansetron 4 mg disintegrating 4 mg PO Q8H PRN nausea and 01/24/19 tablet vomiting #10 tabs acetaminophen 500 mg tablet 500 mg PO Q6H PRN pain #60 tabs 04/14/21 ibuprofen 600 mg tablet 600 mg PO TID PRN pain #60 tabs 04/14/21 cyclobenzaprine 10 mg tablet 10 mg PO TID PRN muscle spasm #20 03/25/22 tabs Allergies Allergy/AdvReac Type Severity Reaction Status Date / Time No Known Allergies Allergy Unverified 04/24/21 09:08 General Stated Complaint: Nk/Back Pain MARCIN: 3 Review of Systems Constitutional Constitutional: Denies chills and Denies fever(s) Cardiovascular Cardiovascular: Denies chest pain and Denies dyspnea on exertion Respiratory Respiratory: Denies cough and Denies dyspnea on exertion Gastrointestinal Gastrointestinal: Denies abdominal pain, Denies change in bowel habits, Denies diarrhea, Denies nausea and Denies vomiting Genitourinary Genitourinary: Denies urinary incontinence Musculoskeletal Musculoskeletal: Reports as per HPI and Reports back pain Neurologic Neurologic: Denies sensory deficit PFSH All Active Problems Back pain (Acute) Trigger finger, right middle finger (Acute) S/P Release: 04/14/2021 High ankle sprain of left lower extremity (Acute) Status post laparoscopic appendectomy (Acute) Medical History Hemorrhoids (02/06/16) Obesity Surgical History section Hx of appendectomy Tubal Ligation, Social History Smoking/Tobacco Use Status: Former Tobacco Use Smoking risk assessment performed?: Yes Alcohol Intake: never Drug use: Daily Substance use type: marijuana Details: last used 04/13/21. Do you feel safe at home: Yes Do you feel safe in your relationship?: Yes Exam Const General: cooperative and no acute distress Orientation: alert, awake and oriented x3 Neck Neck: normal visual inspection, full ROM and no meningeal signs Resp Effort & Inspection: normal respiratory effort Auscultation: clear to auscultation bilaterally Cardio Rate: regular rate Rhythm: regular rhythm Heart Sounds: S1 normal and S2 normal GI Palpation: no hepatosplenomegaly, no aortic enlargement, no masses and no pulsatile masses Back/Spine/Pelvis Thoracic/Lumbar Spine: pain with thoraco-lumbar ROM and thoraco-lumbar ROM limited Pelvis: no pain with anterior-posterior compression, no pain with lateral compression, buttock tenderness on the right and sciatic notch tenderness on the right Neuro General: patient alert, patient awake and patient oriented x3 DTR's: Rt Patellar: 2+, Lt Patellar: 2+, Rt Ankle: 2+ and Lt Ankle: 2+ Extrem Right lower extremity: hip/thigh Details: normal to inspection, knee Details: normal to inspection and lower leg Details: normal to inspection Course Vital Signs Vital signs: Vital Signs Temperature 36.7 C 03/25/22 08:04 Pulse 74 03/25/22 08:04 Respiratory Rate 24 03/25/22 08:04 Blood Pressure 149/94 H 03/25/22 08:04 Pulse Oximetry 98 03/25/22 08:04 Temperature 36.7 C 03/25/22 08:04 Pulse 74 03/25/22 08:04 Respiratory Rate 24 03/25/22 08:04 Respiratory Effort Non-Labored 03/25/22 08:16 Blood Pressure 149/94 H 03/25/22 08:04 Pulse Oximetry 98 03/25/22 08:04 Oxygen Delivery Method Room Air 03/25/22 08:04 Oxygen Flow Rate 0 03/25/22 08:04 Pain Level 5 03/25/22 08:16
[2022-03-25] MEDS: diphenhydrAMINE 50 MG/ML VIAL 12.5 MG IVP (08:40)
[2022-03-25] MEDS: Ondansetron O.D.T. 4 MG TABEF PO (08:41)
[2022-03-25] MEDS: Ketorolac 30 MG/ML VIAL IVP (08:41)
== END 2022-03-25 09:19 | disposition home or self-care (01) ==
PROVIDERS: Emergency Provider Nurse Practitioner Family; PCP Nurse Practitioner Family
DX: M54.50 Low back pain, unspecified (principal); M54.6 Pain in thoracic spine; Z87.891 Personal history of nicotine dependence; Z98.51 Tubal ligation status
CPT/HCPCS: 96374; 96375; 99284; J1200; J1885

== ENCOUNTER 2022-06-25 01:02 | Outpatient (CLI) | payer OTHER, MEDICAID, SELFPAY ==
[2022-06-25 08:33] LABS: Anion Gap 8.2 mmol/L (3-11); BUN 12 mg/dL (7-18); CO2 27.8 mmol/L (21.0-32.0); CREATININE 0.8 mg/dL (0.55-1.02); Calcium 9.1 mg/dL (8.5-10.1); Calculated LDL 123 mg/dL (<100); Chloride 105 mmol/L (98-107); Cholesterol 190 mg/dL (<200); Estimated GFR 94.87 (mL/min/1.73m2); Glucose 112 mg/dL (74-106); HDL Cholesterol 43 mg/dL (40-60); Potassium 3.8 mmol/L (3.5-5.1); Sodium 141 mmol/L (136-145); Triglyceride 121 mg/dL (<150)
== END 2022-06-25 01:03 | disposition home or self-care (01) ==
LOC: LBO 01:02
PROVIDERS: PCP Nurse Practitioner Family; Visit Provider Nurse Practitioner Family
DX: I10 Essential (primary) hypertension (principal); E66.8 Other obesity; Z13.220 Encounter for screening for lipoid disorders
CPT/HCPCS: 36415; 80048; 80061

== ENCOUNTER 2022-07-13 14:50 | Emergency (ER) | payer OTHER, MEDICAID, SELFPAY ==
[2022-07-13 14:57] VITALS: BP 158/87; PULSE 82; RESP 28; TEMP 36.6; O2SAT 99
--- NOTE | 2022-07-13 15:00 | RT.EKG_ITS ---
APPROVED REPORT Exam: Resting ECG Reason for Exam: sob Patient Location: E HR:85 bpm ECG Measurements Heart Rate 85 AXIS TX 178 P 71 QRSd 74 QRS 13 QT 398 T 19 QTc 473 Conclusion Sinus rhythm...normal P axis, V-rate 60- 99 sinus rhtyhm normal axis, normal intervals non ischemic
[2022-07-13 15:16] VITALS: RESP 28
[2022-07-13] MEDS: Benzonatate 100 MG CAP PO (16:20)
[2022-07-13] MEDS: Albuterol/Ipratropium 3 ML UPD VIAL UPD (16:20)
[2022-07-13 16:28] LABS: COVID-19 PCR Negative (Negative); Influenza A PCR Negative (Negative); Influenza B PCR Negative (Negative)
[2022-07-13 16:30] LABS: RSV PCR Positive (Negative); Source Nasopharynx
--- NOTE | 2022-07-13 16:30 | ED.GENADUL_ITS ---
Discharge Plan Disposition Patient Disposition: Home Condition: Stable Discharge Details Clinical Impression: Respiratory syncytial virus (RSV) Primary Care Provider: Yomaira Gonzales ED Provider: Lui Obrien Home Meds and New Rx's Prescriptions: New benzonatate 200 mg capsule 200 mg PO TID PRN (Reason: cough) Qty: 30 0RF prednisone 20 mg tablet 40 mg PO DAILY Qty: 10 0RF Continued loratadine [Claritin RediTabs] 10 MG tablet,disintegrating 10 mg PO DAILY sertraline 100 mg Tablet 150 mg PO DAILY acyclovir 400 mg Tablet 400 mg PO BID albuterol sulfate [ProAir HFA] 90 mcg/actuation Hfa Aerosol Inhaler 1 - 2 puff Inhalation PRN PRN acetaminophen 500 mg tablet 500 mg PO Q6H PRN (Reason: pain) Qty: 60 2RF ibuprofen 600 mg tablet 600 mg PO TID PRN (Reason: pain) Qty: 60 0RF Hold Instructions: Do not take until 5 PM this evening cyclobenzaprine 10 mg tablet 10 mg PO TID PRN (Reason: muscle spasm) Qty: 20 0RF lisinopril 10 mg tablet 1 tab PO 1XD Label Comments: TAKE 1 TABLET BY MOUTH EVERY DAY ondansetron 4 mg tablet,disintegrating 4 mg PO Q8H PRN (Reason: nausea and vomiting) Qty: 10 0RF Label Comments: Pt states she no longer uses this. No Action ibuprofen 800 mg Tablet 800 Hold Instructions: Do not take until 5 PM this evening Discharge Instructions Instructions: Respiratory Syncytial Virus (ED) Additional Instructions: Please continue to stay well-hydrated and get plenty of rest. You should slowly see improvement over the next week and if not improving please follow-up with your primary care provider for reassessment or for significant worsening of your symptoms return to the emergency department. Referrals: Yomaira Gonzales [Primary Care Provider] - 1 week Discharge Data Discharge Date/Time-TO BE ENTERED AT DEPARTURE: 07/13/22 16:58 Medical Decision Making Patient presenting to the emergency department for chief complaint of cold symptoms. Patient states she has had symptoms for the last 5 to 6 days and today cough is slightly improved but she has having some significant coughing episodes leading to some shortness of breath. She does state some asthma that is exercise-induced only, has used her rescue inhaler which does give some slight benefit. Patient does report that she intermittently smokes marijuana no nicotine or cigarette use. Rectal exam shows audible nasal congestion, dry cough, very subtle and slight expiratory wheeze otherwise unremarkable exam. Patient in no signs of severe respiratory distress. We will plan on checking for COVID flu RSV especially since exposure, giving DuoNeb, and Tessalon Perles to see if this helps patient. I did offer patient to perform chest x-ray but at this time she stated she would rather wait and not have any x-ray imaging done. I feel that that is okay pending viral panel results. Patient reassessed and did have some improvement after nebulizer, patient is positive for RSV. Given some wheezing will prescribe patient prednisone and Tessalon Perles and encouraged her to continue to use rescue inhaler. After discussion of diagnosis and plan of care patient has no further needs, questions, or concerns and states clear understanding to return to the emergency department for any worsening symptoms. This documentation was generated using [employer] dictation system, please disregard any oddities of phrase or misspellings. HPI General Mode of arrival: ambulatory . Date/Time Provider Initiated Documentation: 07/13/22 15:18 . Limitations to Documentation: no limitations . Information obtained by: patient and RN notes reviewed . History of Present Illness 41 year old F presents to the emergency department with the chief complaint of Cough, cold, shortness of breath, described as moderate, Quality is described as aching, and is localized to the chest. Patient reports no radiation. Patient started experiencing this day(s) (5) and it has been intermittent. No relieving factors improve symptom(s), No exacerbating factors reported . Patient notes fever/chills and malaise. Patient did receive the following treatments prior to arrival, other (Home inhaler) Related Data Home Medications Medication Instructions Recorded Confirmed loratadine 10 mg disintegrating 10 mg PO DAILY 02/06/16 07/13/22 tablet (Claritin RediTabs) acyclovir 400 mg tablet 400 mg PO BID 08/07/18 07/13/22 albuterol sulfate 90 mcg/actuation 1 - 2 puff inhalation PRN PRN 08/07/18 07/13/22 aerosol inhaler (ProAir HFA) sertraline 100 mg tablet 150 mg PO DAILY 08/07/18 07/13/22 ondansetron 4 mg disintegrating 4 mg PO Q8H PRN nausea and 01/24/19 04/24/21 tablet vomiting #10 tabs acetaminophen 500 mg tablet 500 mg PO Q6H PRN pain #60 tabs 04/14/21 04/24/21 ibuprofen 600 mg tablet 600 mg PO TID PRN pain #60 tabs 04/14/21 04/24/21 ibuprofen 800 mg tablet 800 04/14/21 04/24/21 cyclobenzaprine 10 mg tablet 10 mg PO TID PRN muscle spasm #20 03/25/22 07/13/22 tabs benzonatate 200 mg capsule 200 mg PO TID PRN cough #30 caps 07/13/22 lisinopril 10 mg tablet 1 tab PO 1XD 07/13/22 07/13/22 prednisone 20 mg tablet 40 mg PO DAILY #10 tabs 07/13/22 Previous Rx's Medication Instructions Recorded ondansetron 4 mg disintegrating 4 mg PO Q8H PRN nausea and 01/24/19 tablet vomiting #10 tabs acetaminophen 500 mg tablet 500 mg PO Q6H PRN pain #60 tabs 04/14/21 ibuprofen 600 mg tablet 600 mg PO TID PRN pain #60 tabs 04/14/21 cyclobenzaprine 10 mg tablet 10 mg PO TID PRN muscle spasm #20 03/25/22 tabs benzonatate 200 mg capsule 200 mg PO TID PRN cough #30 caps 07/13/22 prednisone 20 mg tablet 40 mg PO DAILY #10 tabs 07/13/22 Allergies Allergy/AdvReac Type Severity Reaction Status Date / Time No Known Allergies Allergy Unverified 04/24/21 09:08 General Stated Complaint: Dizzy/Sync MARCIN: 3 Review of Systems Constitutional Constitutional: Reports chills, Reports fever(s), Denies headache(s) and Reports malaise Eyes Eyes: Denies eye discharge ENT Ears, Nose, Mouth, and Throat: Reports as per HPI, Denies ear discharge, Reports otalgia, Denies headache(s), Reports nasal congestion, Reports nasal discharge, Denies neck pain, Denies sore throat and Denies throat swelling Cardiovascular Cardiovascular: Denies chest pain and Reports dyspnea Respiratory Respiratory: Reports cough, Reports pain with cough and Reports dyspnea Gastrointestinal Gastrointestinal: Reports diarrhea and Denies vomiting Musculoskeletal Musculoskeletal: Denies joint swelling and Denies neck pain Integumentary/Breasts Skin/Breast: Denies rash Neurologic Neurologic: Denies headache(s) Allergic/Immunologic Allergic/Immunologic: Denies throat swelling PFSH All Active Problems Respiratory syncytial virus (RSV) (Acute) Trigger finger, right middle finger (Acute) S/P Release: 04/14/2021 High ankle sprain of left lower extremity (Acute) Status post laparoscopic appendectomy (Acute) Medical History Hemorrhoids (02/06/16) Obesity Surgical History section Hx of appendectomy Tubal Ligation, Social History Smoking/Tobacco Use Status: Former Tobacco Use Smoking risk assessment performed?: Yes Alcohol Intake: never Drug use: Daily Substance use type: marijuana Details: last used 04/13/21. Do you feel safe at home: Yes Do you feel safe in your relationship?: Yes Exam Const General: cooperative, comfortable and no acute distress Orientation: alert and awake HENMT Head: normal to inspection, normocephalic and atraumatic Ears: hearing grossly normal bilaterally and TM's normal bilaterally General nose exam: external nose normal Face and sinus: no erythema Mouth: oral mucosae normal, no drooling, no muffled voice and no trismus Throat: posterior oropharynx normal Neck Neck: normal visual inspection, full ROM, no lymphadenopathy, no meningeal signs, trachea midline and supple Resp Effort & Inspection: normal respiratory effort, able to speak in complete sentences and cough Quality of cough: dry Auscultation: no crackles, no rhonchi and wheezes (Mild to faint) expiratory wheezes Cardio Rate: regular rate Rhythm: regular rhythm Heart Sounds: S1 normal, S2 normal, normal S1 and S2, no click, no gallops, no murmurs and no rubs Skin General skin exam: no rashes or lesions noted and dry skin (warm) Neuro General: patient alert, patient awake, patient oriented x3, gait normal and moves all extremities Cognition: normal cognition Speech: speech normal Course Vital Signs Vital signs: Vital Signs Temperature 36.6 C 07/13/22 14:57 Pulse 82 07/13/22 14:57 Respiratory Rate 28 H 07/13/22 14:57 Blood Pressure 158/87 H 07/13/22 14:57 Pulse Oximetry 99 07/13/22 14:57 Temperature 36.6 C 07/13/22 14:57 Temperature Source Tympanic 07/13/22 14:57 Pulse 82 07/13/22 14:57 Respiratory Rate 28 H 07/13/22 15:16 Respiratory Effort Incrsd Work of Breathing 07/13/22 15:16 Respiratory Depth Normal 07/13/22 15:16 Respiratory Pattern Tachypnea 07/13/22 15:16 Blood Pressure 158/87 H 07/13/22 14:57 Blood Pressure Position Sitting 07/13/22 14:57 Pulse Oximetry 99 07/13/22 14:57 Oxygen Delivery Method Room Air 07/13/22 14:57 Oxygen Flow Rate 0 07/13/22 14:57
== END 2022-07-13 16:58 | disposition home or self-care (01) ==
PROVIDERS: Emergency Medicine; Emergency Provider Nurse Practitioner Family; PCP Nurse Practitioner Family
DX: R05.9 Cough, unspecified (principal); B97.4 Respiratory syncytial virus as the cause of diseases classified elsewhere; J45.909 Unspecified asthma, uncomplicated; Z20.822 Contact with and (suspected) exposure to COVID-19
CPT/HCPCS: 87637; 93005; 94640; 99283; 93010; 99284; J7620

== ENCOUNTER 2023-01-10 15:59 | Outpatient (REF) | payer MEDICAID, SELFPAY ==
--- NOTE | 2023-01-10 15:00 | PAPFT_PTH ---
PATIENT: Abril Tellez LOC: [facility]#:[id number] AGE/SX: 42/F ROOM: RE01/10/[address]: Yomaira Gonzales : 1980 BED: DIS: 01/10/2023 SPEC #: [id number] RECD: 01/12/23 13:00 STATUS: LOPEZ REJamil #: [id number] CURLY: 01/10/23 15:[address]: Yomaira Gonzales DEPT: [facility] Cytology RECD BY: Lisandra Head Tissues: 1 - CX/ENDOCX FOR PAP SMEARS Procedures: PAP THIN PREP/UVM Screening HPV DNA PROBE Comments: [id number] (HPV 16 & 18/45)
== END 2023-01-10 16:00 | disposition home or self-care (01) ==
LOC: NCHCN 15:59
PROVIDERS: PCP Nurse Practitioner Family; Visit Provider Nurse Practitioner Family
DX: Z00.00 Encounter for general adult medical examination without abnormal findings (principal); Z12.4 Encounter for screening for malignant neoplasm of cervix; Z01.419 Encounter for gynecological examination (general) (routine) without abnormal findings; R87.810 Cervical high risk human papillomavirus (HPV) DNA test positive; R87.610 Atypical squamous cells of undetermined significance on cytologic smear of cervix (ASC-US)
CPT/HCPCS: 88142; 87624

== ENCOUNTER 2023-08-16 18:00 | Outpatient (REF) | payer MEDICAID, SELFPAY ==
[2023-08-16 21:03] LABS: Hemoglobin A1C 6.1 % (<5.7)
[2023-08-16 21:04] LABS: ALT 20 U/L (14-59); AST 21 U/L (15-37); Albumin 3.8 g/dL (3.4-5.0); Alkaline Phosphatase 99 U/L (46-116); Anion Gap 7.5 mmol/L (3-11); BUN 11 mg/dL (7-18); Bilirubin, Total 0.2 mg/dL (0.2-1.0); CO2 27.5 mmol/L (21.0-32.0); CREATININE 0.9 mg/dL (0.55-1.02); Calcium 9.2 mg/dL (8.5-10.1); Calculated LDL 145 mg/dL (<100); Chloride 104 mmol/L (98-107); Cholesterol 226 mg/dL (<200); Estimated GFR 81.86 (mL/min/1.73m2); Glucose 100 mg/dL (74-106); HDL Cholesterol 46 mg/dL (40-60); Potassium 3.5 mmol/L (3.5-5.1); Sodium 139 mmol/L (136-145); TSH (W/Ref FT4) 1.84 uIU/mL (0.36-3.74); Total Protein 7.6 g/dL (6.4-8.2); Triglyceride 178 mg/dL (<150)
== END 2023-08-16 18:01 | disposition home or self-care (01) ==
LOC: NCHCN 18:00
PROVIDERS: PCP Nurse Practitioner Family; Visit Provider Nurse Practitioner Family
DX: I10 Essential (primary) hypertension (principal); R73.01 Impaired fasting glucose
CPT/HCPCS: 80053; 80061; 83036; 84443

== ENCOUNTER → 2023-08-23 04:13 | Outpatient (CLI) | payer MEDICAID, SELFPAY ==
--- NOTE | 2023-08-23 | DI.MAMMO_ITS ---
Exam(s) MAMMO SCREENING EXAM: MAMMO SCREENING CLINICAL HISTORY: SCREENING MAMMO FOR BREAST CANCER Z12.31. TECHNIQUE: Bilateral full field digital CC and MLO mammographic images were obtained with 3D tomosyn thesis and utilizing computer aided detection (CAD). COMPARISON: None. This is a baseline mammogram on a 43-year-old FINDINGS: There are no spiculated masses nor malignant appearing microcalcification groups. There is no significant architectural distortion nor skin thickening-retraction. IMPRESSION: No radiographic evidence of malignancy. BI-RADS Category 1 - Negative Breast Density - Category B - Scattered areas of fibroglandular density Breast density Category C or D implies that the patient has dense breast tissue. Dense breast tissue can make it harder to find cancer on a mammogram. Dense breast tissue is also associated with an incr eased risk of breast cancer. This information about the result of the mammogram report was provided to the patient to raise their awareness. Use this report when you speak with the patient about their risks for breast cancer, which includes their family history. At that time, you may recommend additional screening tests (Ultrasoun d or MRI) as these tests may add significant information. A negative radiographic report should not delay biopsy if a dominant or clinically suspicious mass is present. Up to ten percent of cancers are not identified on mammography. A negative report may reinforce clinical impression. Adenosis and dense breasts may obscure an underlying neoplasm. False positive reports average 6 to 10%. Patient will receive a letter notifying them of these results.
== END ==
PROVIDERS: PCP Nurse Practitioner Family; Visit Provider Nurse Practitioner Family
DX: Z12.31 Encounter for screening mammogram for malignant neoplasm of breast (principal)
CPT/HCPCS: 77063; 77067

== ENCOUNTER 2024-02-21 17:37 | Outpatient (REF) | payer OTHER, SELFPAY ==
--- NOTE | 2024-02-21 15:45 | PAPFT_PTH ---
PATIENT: Abril Tellez LOC: N U#:[id number] AGE/SX: 43/F ROOM: RE02/21/[address]: Evon Peralta DO : 1980 BED: DIS: 02/21/2024 SPEC #: [id number] RECD: 02/21/24 17:42 STATUS: LOPEZ REQ #: [id number] CURLY: 02/21/24 15:[address]: Evon Peralta DEPT: [facility] Cytology RECD BY: Lisandra Head ENTERED: 02/21/24 17:43 SP TYPE: PAPFT OTHR DR: Yomaira Gonzales Tissues: 1 - CX/ENDOCX FOR PAP SMEARS Procedures: PAP THIN PREP/UVM Screening HPV DNA PROBE Comments: [id number] (HPV 16 & 18/45)
--- OUTSIDE RECORDS SUMMARY | 2024-02-21 17:39 | XMS_ITS | Encounter Summary ---
Author Organization [facility] Address [address] [place] [address] Care Team Providers Care Pbx Repairer Name Role Phone Unavailable Primary Care Provider Unavailabl e Encounter Details Date Type Department Care Team (Late st Contact Info) Description 11/05/2004 Results Only [facility] [address] [place] [address] Catalina Barron FNP [address] [place], [place] [id number] Social History Tobacco Use Types Packs/Day Years Used Date Smoking Tobacco: Never Assessed Sex and Gender Information Value Date Recorded Sex Assigned at Not on file Gender Identity Not on file Sexual Orientation Not on file documented as of this encounter Plan of Treatment Not on file documented as of this encounter Procedures Procedure Name Priority Date/Time Associated Diagnosis Comments SURGICAL PATHOLOGY Routine 11/05/2004 0:00 EDT documented in this encounter Results * SURGICAL PATHOLOGY (11/05/2004 0:00 EDT) Pathology Report: SURGICAL PATHOLOGY REPORT Reports generated via electronic interface contain original data; however they are lacking the format of the original report. Caution should be taken when reading/interpreti ng unformatted reports. Name: ? BRENDON MADRIGAL ? Accession #: ? [id number] ? : ? 1980 (Age: 24) ??F ? Collect Date: ? 11/05/2004 ? Location: ? [facility] ? Receive Date: ? 11/06/2004 ? Provider: CATALINA LE Copy to: VIET DOWELL MD ? Final Pathologic Diagnosis: ? Skin of neck, biopsy: - Seborrheic keratosis. Document reviewed and electronically signed by: Willy Luther MD Report ??Date: 11/10/2004 16:58 By the signature above, the attending physician certifies that he/she has personally conducted a gross and/or microscopic examination of the described specimens and rendered or confirmed the above diagnosis. Specimen(s) Received: ? Not listed Clinical History: ? Warty, pedunculated brownish lesion, snipped off with sterile scissors; clinical diagnosis code: ??239.8 Gross Description: ? Received in formalin labelled Emmett and from neck is a 0.7 x 0.3 x 0.3 cm shave biopsy of a sebastian-white nodule with fine, papillary projections. Bisected and submitted entirely in one cassette. ??(Dr. Mindi Sagastume)/[facility] End of Report STEFAN LIVINGSTON 11/05/2004 11/06/2004 15: 26 EDT Catalina Barron [facility] PATHOLOGY ORDERABLES STEFAN LIVINGSTON [address] [place] [address] documented in this encounter Visit Diagnoses Not on filedocumented in this encounter
--- OUTSIDE RECORDS SUMMARY | 2024-02-21 17:39 | XMS_ITS | Encounter Summary ---
Author Organization [facility] Address [address] [place] [address] Care Team Providers Care Research Investigator Name Role Phone Kalpesh Dodge MD Primary Care Provider [phone] Encounter Details Date Type Department Care Team (Late st Contact Info) Description 01/05/2018 Results Only [facility] [place] [phone] Dom Mcgrath, BOILER TECHNICIAN [address] [facility] [address] [place] [address] Social History Tobacco Use Types Packs/Day Years Used Date Smoking Tobacco: Never Assessed Sex and Gender Information Value Date Recorded Sex Assigned at Not on file Gender Identity Not on file Sexual Orientation Not on file documented as of this encounter Plan of Treatment Not on file documented as of this encounter Procedures Procedure Name Priority Date/Time Associated Diagnosis Comments PAP TEST- RESULT ONLY Routine 01/05/2018 0:00 EDT documented in this encounter Results * PAP TEST- RESULT ONLY (01/05/2018 0:00 EDT) Pathology Report: CYTOPATHOLOGY REPORT Reports generated via electronic interface contain original data; however they are lacking the format of the original report. Caution should be taken when reading/interpreti ng unformatted reports. Name: ? BRENDON TELLEZ ? Accession #: ? [id number] ? : ? 1980 (Age: 37) ??F ?Collect Date: ? 01/05/2018 ? Location: ? [facility] ? Receive Date: ? 01/06/2018 ? Provider: DOM MCGRATH BOILER TECHNICIAN Copy to: ? Final Report SPECIMEN ADEQUACY ? Satisfactory for Evaluation - transformation zone component present GENERAL CATEGORIZATION ? Negative for Intraepithelial Lesion or Malignancy INTERPRETATION ? Reactive cellular changes associated with inflammation present (includes repair). Last Menstrual Period: 12/05/17 Hormonal/Contracep tive status: Tubal ligation Other: Additional clinical information: Z00.00,Z12.4, Z01.419 Specimen/Source: ??Pap Test, Endocervix, ThinPrep Imaging System with manual evaluation Document reviewed and electronically signed by: ? ANA MARIA SALEEM MD ? Report ??Date: 01/18/2018 11:01 HPV with Pap Test ? Date Ordered: ? 01/18/2018 ? Status: ?? Signed Out ?Date Complete: ? 01/19/2018 ? By: ??System Interface ? Date Reported: ? 01/19/2018 ? Interpretation RESULT: Negative for HPV. No E6 or E7 mRNA is detected from HPV types 16,18,31,33,35, 39,45,51,52,56,58, 59,66, and 68 by facilities maintenance engineer mediated amplification. Comments Document reviewed and electronically signed by: ? System Interface ? Report date: 01/19/2018 By the signature above, the attending physician certifies that he/she has personally conducted a gross and/or microscopic examination of the described specimens and rendered or confirmed the above diagnosis. End of Report [facility] 01/05/2018 01/06/2018 Dom Mcgrath APRN PATHOLOGY ORDERAB LES Performing Organization Address City/State/[facility] Co de Phone Number [facility] [address] [place] [address] documented in this encounter Visit Diagnoses Not on filedocumented in this encounter Care Teams Research Investigator Relationship Specialty Start Date End Date Kalpesh Dodge MD [address] [place] [id number] PCP - General 12/24/10 documented as of this encounter
--- OUTSIDE RECORDS SUMMARY | 2024-02-21 17:39 | XMS_ITS | Continuity of Care Document ---
Author Organization [place] - [facility] Address [address] [place] [address] Assessment Encounter Date Assessment Date Assessment LastModified by Organization Details LastModified Time 12/08/2023 12/08/2023 Flu vaccine: declines Comirnaty: declines Td: current; due 2025 PCV20: n/a Shingrix: n/a RSV: n/a Pap/ HPV: current- scheduled in February with LOGISTICS TEAM LEAD Mammogram: current CRC: n/a DEXA: n/a Follow-up in 3 Months. Call or RTO sooner if needs arise. Not available 12/08/2023 13:58:02 Plan of Treatment Reminders Order Date Submit Date Provider Last Modified By Organization Details Last Modified Time Details Appointments Office Visit 30 2023 03:00P M Not available Not available Not available Lab None recorded. Referral urogyneco logist referral 2023 024 [email or web address] Niall Falcon MD, [address] [place] [address] , [place], [address], 12/08/2023 14:09:12 Procedures None recorded. Surgeries None recorded. Imaging None recorded. Medication Orders None recorded. Patient TargetsNo targets recorded. Patient Instructions Encounter Date Encounter Id Patient Instructions Last Modified By Organization Details Last Modified Time 12/08/2023 [id number] starting a weigh t loss plan: care instructions Not available 12/08/2023 13:58:34 diet Not available 2023 13:58:34 exercise Not available 2023 13:58:34 Reason for Referral Urogynecologist Referral for Genuine stress incontinence Referring Physician: Dom Mcgrath [facility] Medicine, Encounter Date: 08/16/2023 Documentation Supervisor Referral for Pr uritus of vulva Referring Physician: Dom Mcgrath [facility] Fl[place], Encounter Date: 10/20/2023 Urogynecologist Referral for Genuine stress incontinence Referring Physician: Dom Mcgrath [facility] Fl[place], Encounter Date: 12/08/2023 Problems Name Status Onset Date Resolution Date Notes Provider Name and Address Organization Details Recorded Time Nicotine dependence Completed 201008/16/2023 Problem Code: Z87.891; Problem Code Type: ICD-10; [address], [place], [address] , [facility] 4 07:02:29 Patient status finding Completed 201503/26/2016 12/25/2015 - Comments only - Dom Mcgrath APRN - screening for RPR, HIV, GC/ Chlaymdia, Pap with HPV testing. Discussed good sexual practices/ safe sex. Problem Code: Z78.9; Problem Code Type: ICD-10; Not Available [facility] 3 05:56:22 Abnormal cytological finding in specimen from female genital organ Completed 201508/16/2023 Problem Code: R87.618; Problem Code Type: ICD-10; [address], [place], [address] , [facility] 4 07:02:29 Hemorrhoids Completed 201508/16/2023 01/05/2018 - Comments only - Dom Mcgrath APRN - asymptomatic. treat OTC medications as desires. Problem Code: K64.9; Problem Code Type: ICD-10; [address], [place], [address] , [facility] 4 07:02:29 Acute vaginitis Completed 201609/23/2016 Problem Code: N76.0; Problem Code Type: ICD-10; Not Available [facility] 3 05:56:23 Exercise induced bronchospasm Completed 201608/16/2023 01/13/2021 - Comments only - Dom Mcgrath APRN - Encouraged use of proair PRN. Problem Code: J45.990; Problem Code Type: ICD-10; [address], [place], [address] , [facility] 4 07:05:36 Constipation Completed 201608/16/2023 01/13/2021 - Comments only - Dom Mcgrath APRN - Resolved. monitor for now. Problem Code: K59.00; Problem Code Type: ICD-10; [address], [place], [address] , [facility] 4 07:05:35 Nonulcer dyspepsia Completed 201608/16/2023 01/13/2021 - Comments only - Dom Mcgrath APRN - diet managed. avoid triggers. Problem Code: K30; Problem Code Type: ICD-10; [address], [place], [address] , [facility] 4 07:05:36 Genuine stress incontinence Completed 201608/16/2023 01/13/2021 - Comments only - Dom Mcgrath APRN - Encouraged kegel's/ pelvic floor exercises. Can do yoga. Encouraged PT if not improving. Problem Code: N39.3; Problem Code Type: ICD-10; [address], [place], [address] , [facility] 4 07:05:36 Adjustment disorder with mixed anxiety and depressed mood Completed 201608/16/2023 08/07/2018 - Comments only - Dom Mcgrath APRN - with grief. Some improvements. Continue sertraline at current dosage. Continue with coping skills. Continue counseling as desires. Problem Code: F43.23; Problem Code Type: ICD-10; [address], [place], [address] , [facility] 4 07:02:29 Adult health examination Completed 201608/16/2023 01/05/2018 - Comments only - Dom Mcgrath APRN - annual exam completed today. hx of abnormal pap/ HPV +. Pap smear and HPV testing completed today. declined STD testing. UTD on vaccines. Problem Code: Z00.00; Problem Code Type: ICD-10; [address], [place], [address] , [facility] 4 07:02:29 Obesity Completed 201608/16/2023 01/13/2021 - Comments only - Dom Mcgrath APRN - Encouraged healthy lifestyle. Problem Code: E66.9; Problem Code Type: ICD-10; [address], [place], [address] , [facility] 4 07:02:29 Adjustment disorder with depressed mood Completed 201608/16/2023 Problem Code: F43.21; Problem Code Type: ICD-10; [address], [place], [address] , [facility] 4 07:02:29 Tremor Completed 201708/16/2023 08/07/2018 - Comments only - Dom Mcgrath APRN - improved. monitor for now. Problem Code: R25.1; Problem Code Type: ICD-10; [address], [place], [address] , [facility] 4 07:05:35 Herpesvirus infection Completed 201708/16/2023 01/13/2021 - Comments only - Dom Mcgrath APRN - without flare. Continue medication regimen. Problem Code: A60.00; Problem Code Type: ICD-10; [address], [place], [address] , [facility] 4 07:14:31 Somatoform disorder Completed 201708/16/2023 01/13/2021 - Comments only - Dom Mcgrath APRN - Encouraged mouth guard, FU with dentist. Problem Code: F45.8; Problem Code Type: ICD-10; [address], [place], [address] , [facility] 4 07:02:29 Adjustment disorder Completed 201808/16/2023 Problem Code: F43.20; Problem Code Type: ICD-10; [address], [place], [address] , [facility] 4 07:02:29 Moderate major depression, single episode Completed 201808/16/2023 01/13/2021 - Comments only - Dom Mcgrath APRN - adjustment disorder. anxiety. unresolved grief. Situational depression. increased stressors, upcoming need for new housing. Encouraged to reach out to [facility] for assistance with housing. Encouraged good coping skills. On higher dose of sertraline she felt like a zombie, lack of emotion. Dose reduction has improved this slightly. Declines new medications at this time. Set up to see in house counseling. Problem Code: F32.1; Problem Code Type: ICD-10; [address], [place], [address] , [facility] 4 07:05:35 Vulvovaginiti s Completed 201805/16/2019 02/13/2019 - Comments only - Dom Mcgrath APRN - noted with vaginal cyst. Encouraged good perianal hygiene, use baby wipes that are non scented over toilet paper. Warm compresses PRN. if no great improvements, consider cephalexin 500mg BID for 7 days. Not Available [facility] 3 05:56:26 Headache Completed 201808/16/2023 01/13/2021 - Comments only - Dom Mcgrath APRN - once per month. NSAIDs effective. Monitor for now. Problem Code: R51; Problem Code Type: ICD-10; [address], [place], [address] , [facility] 4 07:05:35 Essential hypertension Completed 202008/16/2023 Problem Code: I10; Problem Code Type: ICD-10; [address], [facility] [address] , [facility] 4 07:05:36 Anxiety Completed 202008/16/2023 Problem Code: F41.8; Problem Code Type: ICD-10; [address], [place], [address] , [facility] 4 07:02:29 Generalized hyperhidrosis Completed 202108/16/2023 Problem Code: R61; Problem Code Type: ICD-10; [address], [facility] [address] , [facility] 4 07:05:35 Paresthesia Completed 202108/16/2023 Problem Code: R20.2; Problem Code Type: ICD-10; [address], [facility] [address] , [facility] 4 07:05:36 Seasonal allergic rhinitis Completed 202108/16/2023 Problem Code: J30.2; Problem Code Type: ICD-10; [address], [facility] [address] [place] [address] 4 07:05:35 Pain in right foot Completed 202108/16/2023 Problem Code: M79.671; Problem Code Type: ICD-10; [address], [address] 4 07:05:35 Hyperlipidemi a screening Completed 202108/16/2023 Problem Code: Z13.220; Problem Code Type: ICD-10; [address], [facility] [address] [place] [address] 4 07:02:29 Impaired fasting glycemia Completed 202108/16/2023 Problem Code: R73.01; Problem Code Type: ICD-10; [address], [facility] [address] [place] [address] 4 06:58:02 Itching of skin Completed 202208/16/2023 Problem Code: L29.8; Problem Code Type: ICD-10; [address], [facility] [address] [place] [address] 4 07:02:29 Atypical squamous cells of undetermined significance on cervical Papanicolaou smear Completed 202208/16/2023 Problem Code: R87.610; Problem Code Type: ICD-10; [address], [facility] [address] 4 07:02:29 Pain of toe of left foot Completed 201501/05/2018 Problem Code: M79.675; Problem Code Type: ICD-10; Not Available [facility] 3 05:56:36 Candidiasis of vagina Completed 201609/23/2016 09/16/2016 - Comments only - Carley Stressenger DATA INTEGRATION ANALYST - - Most likely differentials include candidiasis or bacterial vaginosis. Given recent antibiotic use, negative whiff test, and appearance of discharge I believe this is more likely to be candidiasis and I am treating with Diflucan. However, I am still testing for BV and will follow up with the patient and adjust treatment plan accordingly based on the results. Also r/o STI via gen-probe. Problem Code: B37.3; Problem Code Type: ICD-10; Not Available [facility] 3 05:56:36 Pain of right eye Completed 201701/13/2021 Problem Code: H57.11; Problem Code Type: ICD-10; Not Available [facility] 3 05:56:37 Venereal disease screening Completed 201612/22/2017 Problem Code: Z11.3; Problem Code Type: ICD-10; Not Available [facility] 3 05:56:37 History of clinical finding in subject Completed 201003/30/2023 Not Available [facility] 3 05:56:38 Abdominal pain Completed 202001/13/2021 Problem Code: R10.9; Problem Code Type: ICD-10; [address], [place], [address] , [facility] 4 13:51:23 Spasm Completed 201806/11/2022 Problem Code: R25.2; Problem Code Type: ICD-10; Not Available [facility] 3 05:56:38 Trigger finger of right hand Completed 202006/11/2022 Problem Code: M65.331; Problem Code Type: ICD-10; Not Available [facility] 3 05:56:39 Syncope and collapse Completed 201801/10/2023 Problem Code: R55; Problem Code Type: ICD-10; Not Available [facility] 3 05:56:39 Postconcussio n syndrome Completed 201801/13/2021 Problem Code: F07.81; Problem Code Type: ICD-10; Not Available [facility] 3 05:56:39 Joint pain Completed 202101/10/2023 Problem Code: M25.50; Problem Code Type: ICD-10; Not Available [facility] 3 05:56:40 Cough Completed 201801/13/2021 Problem Code: R05; Problem Code Type: ICD-10; Not Available [facility] 3 05:56:41 History of injury Completed 201801/13/2021 Problem Code: Z87.828; Problem Code Type: ICD-10; Not Available [facility] 3 05:56:41 Palpitations Completed 201701/10/2023 Problem Code: R00.2; Problem Code Type: ICD-10; Not Available [facility] 3 05:56:42 Cramp in lower limb associated with sleep Completed 202201/10/2023 Problem Code: G47.62; Problem Code Type: ICD-10; Not Available [facility] 3 05:56:42 Chronic sinusitis Completed 201601/05/2018 Problem Code: J32.9; Problem Code Type: ICD-10; Not Available [facility] 3 05:56:43 Constipation Active 202301/13/2021 - Comments only - Dom Mcgrath APRN - Resolved. monitor for now. Problem Code: K59.00; Problem Code Type: ICD-10; DOM MCGRATH APRN [address], [place], [address] , [facility]. 4 07:05:35 Moderate major depression, single episode Active 202301/13/2021 - Comments only - Dom Mcgrath APRN - adjustment disorder. anxiety. unresolved grief. Situational depression. increased stressors, upcoming need for new housing. Encouraged to reach out to [facility] for assistance with housing. Encouraged good coping skills. On higher dose of sertraline she felt like a zombie, lack of emotion. Dose reduction has improved this slightly. Declines new medications at this time. Set up to see in house counseling. Problem Code: F32.1; Problem Code Type: ICD-10; [address], [place], [address] , [facility] 4 07:05:35 Headache Active 202301/13/2021 - Comments only - Dom Mcgrath APRN - once per month. NSAIDs effective. Monitor for now. Problem Code: R51; Problem Code Type: ICD-10; [address], [facility] [address] , [facility] 4 07:05:35 Tremor Active 202308/07/2018 - Comments only - Dom Mcgrath APRN - improved. monitor for now. Problem Code: R25.1; Problem Code Type: ICD-10; [address], [place], [address] , [facility] 4 07:05:35 Generalized hyperhidrosis Active 2023 Problem Code: R61; Problem Code Type: ICD-James; [address], [facility] [address] , [facility] 4 07:05:35 Pain in right foot Active 2023 Problem Code: M79.671; Problem Code Type: ICD-James; [address], [facility] [address] , [facility] 4 07:05:35 Seasonal allergic rhinitis Active 2023 Problem Code: J30.2; Problem Code Type: ICD-10; [address], [place], [address] , [facility] 4 07:05:35 Nonulcer dyspepsia Active 202301/13/2021 - Comments only - Dom Mcgrath APRN - diet managed. avoid triggers. Problem Code: K30; Problem Code Type: ICD-10; [address], [place], [address] , [facility] 4 07:05:35 Essential hypertension Active 2023 Problem Code: I10; Problem Code Type: ICD-10; [address], [facility] [address] , [facility] 4 07:05:36 Exercise induced bronchospasm Active 202301/13/2021 - Comments only - Dom Mcgrath APRN - Encouraged use of proair PRN. Problem Code: J45.990; Problem Code Type: ICD-10; [address], [place], [address] , [facility] 4 07:05:36 Paresthesia Active 2023 Problem Code: R20.2; Problem Code Type: ICD-10; [address], [place], [address] , [facility] 4 07:05:36 Genuine stress incontinence Active 202301/13/2021 - Comments only - Dom Mcgrath APRN - Encouraged kegel's/ pelvic floor exercises. Can do yoga. Encouraged PT if not improving. Problem Code: N39.3; Problem Code Type: ICD-10; [address], [place], [address] , [facility] 4 07:05:36 Bruxism Active [address], [place], [address] , [facility] 4 07:05:25 Herpesvirus infection Active 202301/13/2021 - Comments only - Dom Mcgrath APRN - without flare. Continue medication regimen. Problem Code: A60.00; Problem Code Type: ICD-10; DOM MCGRATH APRN [address], [place], [address] , [facility] 4 07:14:31 Snoring Active 2023 DOM MCGRATH APRN [address], [place], [address] , [facility] 4 14:32:53 Pain of right shoulder joint Active 2023 DOM MCGRATH APRN [address], [place], [address] , [facility] 4 14:42:06 Prediabetes Active 2023 DOM MCGRATH APRN [address], [place], [address] , [facility] 4 05:33:33 Hyperlipidemi a Active 2023 DOM MCGRATH APRN [address], [place], [address] , [facility] 4 05:34:00 Impaired fasting glycemia Active 2023 Problem Code: R73.01; Problem Code Type: ICD-10; [address], [place], [address] , [facility] 4 06:58:01 Pruritus of vulva Active 2023 DOM MCGRATH APRN [address], [place], [address] , [facility] 4 13:43:55 Abdominal pain Active 2023 Problem Code: R10.9; Problem Code Type: ICD-10; DOM MCGRATH, SHEARER HELPER [address], [place], [address] , [facility]. 4 13:51:22 Problem Notes None recorded. Medical Equipment None Reported. Allergies No known drug allergies Medications Name Sig Start Date Stop Date Status Note LastModified by Organization Details LastModified Time Miralax 17 gram/dose oral powder Take 17 grams (1 tablespo on) by mouth daily. Mix in 8 0z of liquid. Take as needed. 12/22 completed Not Available Not Available Not Available paroxetin e 10 mg tablet 1 qd 07/10 completed Not Available Not Available Not Available oxybutyni n chloride ER 10 mg tablet,ex tended release 24 hr TAKE ONE TABLET BY MOUTH EVERY DAY active Not Available Not Available No t Available azithromy patience 250 mg tablet Take 2 by mouth now, then take 1 by mouth daily x 4 days 08/05 completed Not Available Not Available Not Available benzonata te 200 mg capsule TAKE 1 CAPSULE BY MOUTH THREE TIMES DAILY NEEDED FOR COUGH 08/16 completed Not Available Not Available Not Available senna 8.6 mg tablet Take 1 tablet by mouth at bedtime as needed 08/16 completed Not Available Not Available Not Available Claritin 10 mg tablet Take 1 tablet every day by oral route. active Not Available Not Available No t Available prednison e 20 mg tablet 08/16 completed Not Available Not Available Not Available sertralin e 100 mg tablet TAKE ONE TABLET BY MOUTH EVERY DAY active Not Available Not Available No t Available Diflucan 150 mg tablet Take 1 tab by mouth now 12/27 completed Not Available Not Available Not Available metronida zole 500 mg tablet Take 1 tab by mouth twice daily 09/23 completed Not Available Not Available Not Available acyclovir 400 mg tablet TAKE ONE TABLET BY MOUTH TWICE A DAY active Not Available Not Available No t Available Aleve 220 mg tablet Take 2 tablet by mouth once a day as needed active Not Available Not Available No t Available Tessalon Perles 100 mg capsule 1-2 caps TID 05/06 completed Not Available Not Available Not Available paroxetin e 20 mg tablet 1 TAB QAM 07/10 completed Not Available Not Available Not Available lisinopri l 10 mg tablet TAKE ONE TABLET BY MOUTH EVERY DAY active Not Available Not Available No t Available Qvar 40 mcg/actua tion Metered Aerosol oral inhaler 2 PUFFS twice daily 12/24 completed Not Available Not Available Not Available nystatin- triamcino lone 100,000 unit/g-0. 1 % topical cream APPLY TO THE AFFECTED AREA(S) BY TOPICAL ROUTE 2 TIMES PER DAY IN THEMORNI NG AND EVENING active Not Available Not Available No t Available oxybutyni n chloride ER 5 mg tablet,ex tended release 24 hr TAKE 1 TABLET BY MOUTH EVERY DAY 12/19 completed Not Available Not Available Not Available sertralin e 25 mg tablet Take one tablet by mouth in addition to 100 mg tablet (total 125mg). 07/06 completed Not Available Not Available Not Available omeprazol e 20 mg capsule,d elayed release Take 1 capsule every day by oral route. active Not Available Not Available No t Available Anusol-HC 25 mg rectal supposito ry 1 supposit ory twice daily for 5-7 days 12/27 completed Not Available Not Available Not Available albuterol sulfate HFA 90 mcg/actua tion aerosol inhaler INHALE 1 TO 2 PUFFS NEEDED NO MORE THAN 3 TIMES A WEEK active Not Available Not Available No t Available sertralin e 50 mg tablet Take 1 tab by mouth daily 2017 active Not Available Not Available Not Avai lable docusate sodium 100 mg tablet Take 1 tablet by mouth twice a day as needed 08/16 completed Not Available Not Available Not Available Americain e 20 % topical ointment Apply to rectal area sparingl y every 4 hours as needed 09/16 completed Not Available Not Available Not Available cyclobenz aprine 5 mg tablet Take one tablet PO BID, PRN. 08/14 completed Not Available Not Available Not Available Albuterol Sulfate HFA 90 mcg/Actua tion aerosol inhaler 2 PUFFS .qid wheezing /SOB 12/24 completed Not Available Not Available Not Available Advair HFA 115 mcg-21 mcg/actua tion aerosol inhaler Inhale 2 puff as directed twice a day 2 puffs twice a day for 1 month, then decrease to 1 puff twice a day 09/28 completed too much money Not Available Not Available Not Available acetylcys teine 600 mg capsule TAKE 2 CAPSULES BY MOUTH TWICE DAILY 08/16 completed Not Available Not Available Not Available Symbicort 80 mcg-4.5 mcg/actua tion HFA aerosol inhaler Inhale 2 puff as directed twice a day do 2 puffs twice per day for 1 month, then 1 puff twice per day for 1 month, then stop 07/29 completed Not Available Not Available Not Available omeprazol e 20 mg tablet,de layed release Take 1 tab by mouth daily. 08/07 completed Not Available Not Available Not Available Claritin Liqui-Gel 10 mg capsule Take 1 tab by mouth daily prn 2015 active Not Available Not Available Not Avai lable Aerochamb er Plus Flow-Vu USE DEVICE DIRECTED WITH INHALERS active Not Available Not Available No t Available Qvar RediHaler 80 mcg/actua tion HFA breath activated aerosol Inhale 1 puff using inhaler twice a day 01/10 completed too expensiv e didn't bulk picker Not Available Not Available Not Available Qvar RediHaler 40 mcg/actua tion HFA breath activated aerosol INHALE 1 PUFF BY MOUTH TWICE DAILY active Not Available Not Available No t Available Vitals Date Recorded Body height Body mass index (BMI) Body weight Body temperature Oxygen saturation Oxygen saturation in Arterial blood by Pulse oximetry Heart rate Systolic blood pressure Diastolic blood pressure Provider Name and Address Organization Details Last Updated DateTime 4 177.55 cm 38.3 kg/m2 767394. 97 g 98.3 [degF] 98 % 98 % 67 /min 136 mm[Hg] 72 mm[Hg] CONSTANZA GUAJARDO CMA [place] [facility]. 4 13:27:24 Social History Question Answer Notes LastModified by Organizat ion Details LastModified Time Tobacco Smoking Status Former Smoker CONSTANZA CASANDRA, WATER PIPE INSTALLER null, [place] [facility]. 08/16/2023 14:17:10 When Did You Quit Smoking? 16+yearssinc elastcigaret te Information not available 08/16/2023 What Was The Date Of Your Most Recent Tobacco Screening? 08/16/2023 Information not available 08/16/2023 At What Age Did You Start Smoking Tobacco? 19 Information not available 08/16/2023 How Much Tobacco Do You Smoke? 1 PPD Information not available 08/16/2023 Has Tobacco Cessation Counseling Been Provided? No Information not available 08/16/2023 Do You Or Have You Ever Used Any Other Forms Of Tobacco Or Nicotine? No Information not available 08/16/2023 Sex: Female Functional Status None recorded. Mental Status None recorded. Family History Relationship Description Onset Age of this Age Resolved Age Notes Notes:*Problem: Mother:-aliv e- Depression Father: Unknown, no contact SISTER x 1 - L&W without ongoing medical issues 1/2 SISTER x 1 - L&W without ongoing medical issues SONS x 2 - L&W without ongoing medical issues HTN, HLD, CAD, DM, thyroid disorders- no colon CA, breast CA, ovarian CA - no Medical History No medical history recorded. Gynecological HistoryNo gynecological history recorded. Obstetrics History GPAL:G 0 P 0 0 0 0 Immunizations Vaccine Type Date Status Provider Name and Address Organization Details Recorded Time Tdap 12/25/2015 completed Not Available [facility] 06:12:03 Td(adult) unspecified formulation 09/09/2005 completed Not Available [facility] 05/13/2023 06:12:03 COVID-19 vaccine, vector-nr, rS-Ad26, PF, 0.5 mL 12/05/2020 completed Not Available [facility] 05/13/2023 06:12:03 Past Encounters Encounter ID Performer Location Encounter Start Date Encounter Closed Date Diagnosis/Indication Diagnosis SNOMED-CT Code [id number] DOM MCGRATH APRN [address] [id number] 12/08/2023 13:07:02 12/08/2023 14:09:11 Tremor [id number] Headache [id number] Moderate m ajor depression, single episode [id number] Herpesvirus infection [address] ress incontinence 57257761 Nonulcer dyspepsia 02114 07 Constipation 95204493 Exercise i nduced bronchospasm 770069492 Essential hypertension 13099072 Generalize d hyperhidrosis 154949747 Paresthesia 16164309 Seasonal a llergic rhinitis 761744672 Bruxism 898117952 Snoring 35781110 Pain of ri ght shoulder joint [id number] 00 Prediabetes 467758895 Pruritus of vulva 250155 00 Abdominal pain 57767529 Health Concerns Section Related Observation LastModified by Organization Detai ls LastModified Time None Recorded Concern Status LastModified by Organization Details LastModified Time None Recorded Payers None recorded. Notes Date Note Type Note Provider Name and Address Organization Details Recorded Time 12/08/2023 text/html HPI Notes: Is he re for follow-up: For the month of December, she does not have prescription coverage/ health insurance. Has not been able to increase the ditropan to 10mg daily. She should have coverage starting January 01. - Tremor. Have been monitoring. -- update .12.25. Feels tremors are a little worse. People have noticed it more. Does tend to drop stuff. - Headaches. APAP PRN. -- update .12.25. When she sits down for a long period of time and stands up she will feel a pulsating sensation for about 1 minute to her head. She has been pushing fluids, no changes. Is not each time she gets up, usually only if sitting for prolonged periods of time. Can occur when laying down and then getting up. Started 3-4 weeks ago. - Depression. Adjustment disorder. Anxiety. Grief. Situational depression. Stress. Takes sertraline. -- update .12.25. it is good. - Herpes. Takes acyclovir suppressive. -- update 12.08.23. no herpes flare. - Prediabetes. Obesity. Working on on lifestyle. -- update 12.08.23. She feels her diet is better. Eating more salads. More cottage cheese into diet. Less junk food. eating more nuts. Grilling veggies. Is vegetarian. - Stress incont. Taking ditropan ER, last visit was increased to 10mg daily -- update 12.08.23. has not increased. Still having incont, but is much better than it has been better than it has in the past. - Dyspepsia. -- update 12.08.23. taking prilosec daily, is getting breakthrough reflux at times. - Constipation. Rectal bleeding hemorrhoids. see ROS. - Exercise induced bronchospasm. Taking Claritin, proair. PRN, QVAR, NAC BID. Has been declining PFTs. -- 12.08.23. has used emergency inhaler 2 times in last 3 months. - HTN. Takes Lisinopril. - Night sweats. Suspect r/t sertraline. -- update 12.08.23. it is the same. - paresthesia, hands. Right hand. left hand. Legs. in certain positions she will always have paresthesia. She changes her positions and the symptoms resolve. - Seasonal allergies. Takes antihistamines. - Foot pain, right. Managed with good foot wear. - Bruxism. Has been encouraged to work with dentist, to consider mouth guard. -- update 12.08.23. has not seen dentist; has an appt in June. Does not feel as stressed, so less grinding of teeth - Snoring. declines AVELINO eval. - Pain of right shoulder joint. From repetitive motion. Declines further eval. takes APAP PRN. Has been encouraged to stretch routinely. See ROS. - Pruritus of vulva. Working with LOGISTICS TEAM LEAD, using mycolog II. -- update 12.08.23. The ointment has provided relief. DOM MCGRATH, SHEARER HELPER [address], [place], [address], [place] - [facility]. 12/08/2023 15:52:03 OBGyn Episode No OBEpisode recorded.
--- OUTSIDE RECORDS SUMMARY | 2024-02-21 17:39 | XMS_ITS | Encounter Summary ---
Author Organization [facility] Address [address] [place] [address] Care Team Providers Care Relations Manager Name Role Phone Unavailable Primary Care Provider Unavailabl e Encounter Details Date Type Department Care Team (Late st Contact Info) Description 08/15/2002 Results Only [facility] - Maple conversion [address] [place] [address] Sunita Levine, [facility] [address] [place] [address] [place] [address] Social History Tobacco Use Types Packs/Day Years Used Date Smoking Tobacco: Never Assessed Sex and Gender Information Value Date Recorded Sex Assigned at Not on file Gender Identity Not on file Sexual Orientation Not on file documented as of this encounter Plan of Treatment Not on file documented as of this encounter Procedures Procedure Name Priority Date/Time Associated Diagnosis Comments CYTOPATHOLOGY Routine 08/15/2002 0:00 EST documented in this encounter Results * CYTOPATHOLOGY (08/15/2002 0:00 EST) Pathology Report: CYTOPATHOLOGY REPORT Reports generated via electronic interface contain original data; however they are lacking the format of the original report. Caution should be taken when reading/interpreti ng unformatted reports. Name: ? BRENDON MADRIGAL ? Accession #: ? [id number] : ? 1980 (Age: 21) ??F ?Collect Date: ? 08/15/2002 Location: ? [facility] ? Receive Date: ? 08/16/2002 Provider: ?SUNITA LEVINE [employer] Copy to: ? Specimen/Source: ?Conventional Pap Test, Cervix/Endocervix Last Menstrual Period: ? 05/05 Menstrual/Pregnanc y Status: ? SPECIMEN ADEQUACY ? Satisfactory for Evaluation - transformation zone component present GENERAL CATEGORIZATION ? Negative for Intraepithelial Lesion or Malignancy INTERPRETATION ? Reactive cellular changes associated with inflammation present (includes repair). ? Document reviewed and electronically signed by: ? Princess Pugh MD ? Report Date: ??08/24/2002 17:14 End of Report [facility] 08/15/2002 08/16/2002 Sunita Levine [employer] PATHOLOGY ORDERABLES Performing Organization Address City/State/[facility] Co de Phone Number [facility] [address] [place] [address] documented in this encounter Visit Diagnoses Not on filedocumented in this encounter
--- OUTSIDE RECORDS SUMMARY | 2024-02-21 17:39 | XMS_ITS | Encounter Summary ---
Author Organization [facility] Address [address] [place] [address] Care Team Providers Care Outside Production Inspector Name Role Phone Kalpesh Dodge MD Primary Care Provider [phone] Encounter Details Date Type Department Care Team (Late st Contact Info) Description 09/08/2020 Lab Requisition [facility] Pathology & Laboratory Medicine - [address] [address] Michael Goff MD [address] [place] [phone] Unspecified acute appendicitis Social History Tobacco Use Types Packs/Day Years Used Date Smoking Tobacco: Never Assessed Sex and Gender Information Value Date Recorded Sex Assigned at Not on file Gender Identity Not on file Sexual Orientation Not on file documented as of this encounter Plan of Treatment Not on file documented as of this encounter Procedures Procedure Name Priority Date/Time Associated Diagnosis Comments SURGICAL PATHOLOGY Today 09/04/2020 18 :23 EST Unspecified acute appendicitis documented in this encounter Results * SURGICAL PATHOLOGY (09/04/2020 18:23 EST) Final Diagnosis A. APPENDIX, APPENDECTOMY: - Acute suppurative appendicitis and periappendicitis. 09/10/2020 14:00 EST [facility] Attestation By the signature below, the attending physician certifies that they have 1) personally conducted a gross and/or microscopic examination of the described specimen(s), and/or personally interpreted the results of laboratory testing of the described specimen(s), and 2) personally rendered or confirmed the above diagnosis. 09/10/2020 14:00 [facility] at 1400 Clinical History Acute appendicitis 09/10/2020 14:00 [facility] Gross Description A. Received in formalin labelled with proper patient identification (initials S, J) and appendix & contents is an appendix (4.9 cm in length x 1.0 cm in diameter), with a moderate amount of attached mesoappendix. The proximal margin is stapled. The serosa is sebastian-white with hemorrhagic adhesions centrally. The cut surface is sebastian-white to yellow. The average wall thickness is 0.2 cm. A perforation site is not identified. The lumen ranges from 0.1 cm to 0.3 cm in diameter. A fecalith is not identified. The proximal margin is inked blue. The section adjacent to the stapled proximal margin and the entire longitudinally bisected distal tip are submitted in A1 and the remainder of the appendix is entirely submitted in A2 and A3. HALEIGH MUIR(ASCP) 09/08/2020 9:45 09/10/2020 14:00 [facility] Performing Lab [facility] 09/10/2020 14:00 [facility] Scanned Images 09/10/2020 14:00 [facility] Tissue ENTIRE APPENDIX / Unknown 09/04/2020 18:23 EST 09/08/2020 8:13 EST Michael Goff MD PATHOLOGY ORDERABLES [facility] [address] [place] [address] documented in this encounter Visit Diagnoses Diagnosis Unspecified acute appendicitis documented in this encounter Care Teams Outside Production Inspector Relationship Specialty Start Date End Date Kalpesh Dodge MD [address] [place] [id number] PCP - General 12/24/10 documented as of this encounter
--- OUTSIDE RECORDS SUMMARY | 2024-02-21 17:39 | XMS_ITS | Encounter Summary ---
Author Organization [facility] Address [address] [place] [address] Care Team Providers Care Asphalt Coater Name Role Phone Unavailable Primary Care Provider Unavailabl e Encounter Details Date Type Department Care Team (Late st Contact Info) Description 01/29/2004 Results Only [facility] - Maple conversion [address] [place] [address] [place], [place] [address] Social History Tobacco Use Types Packs/Day Years Used Date Smoking Tobacco: Never Assessed Sex and Gender Information Value Date Recorded Sex Assigned at Not on file Gender Identity Not on file Sexual Orientation Not on file documented as of this encounter Plan of Treatment Not on file documented as of this encounter Procedures Procedure Name Priority Date/Time Associated Diagnosis Comments CYTOPATHOLOGY Routine 01/29/2004 0:00 EDT documented in this encounter Results * CYTOPATHOLOGY (01/29/2004 0:00 EDT) Pathology Report: CYTOPATHOLOGY REPORT Reports generated via electronic interface contain original data; however they are lacking the format of the original report. Caution should be taken when reading/interpreti ng unformatted reports. Name: ? BRENDON MADRIGAL ? Accession #: ? [id number] : ? 1980 (Age: 23) ??F ?Collect Date: ? 01/29/2004 Location: ? [facility] ? Receive Date: ? 01/31/2004 Provider: ?NICOLLE CHU CNM Copy to: ? Specimen/Source: ?ThinPrep Pap Test, Cervix/Endocervix Last Menstrual Period: ? 10/07/03 Menstrual/Pregnanc y Status: ? SPECIMEN ADEQUACY ? Satisfactory for Evaluation - transformation zone component present GENERAL CATEGORIZATION ? Negative for Intraepithelial Lesion or Malignancy INTERPRETATION ? Fungal organisms present morphologically consistent with Taina species. ? Document reviewed and electronically signed by: ? Divina Rajan [facility] [[email or web address]](ASCP) ? Report Date: ??02/06/2004 09:41 End of Report [facility] 01/29/2004 01/31/2004 Nicolle Chu CNM PATHOLOGY ORDERABLES [facility] [address] [place] [address] documented in this encounter Visit Diagnoses Not on filedocumented in this encounter
--- OUTSIDE RECORDS SUMMARY | 2024-02-21 17:39 | XMS_ITS | Referral Summary ---
Author Organization [facility] Address [address] [place] [address] Care Team Providers Care Supervisor Education Name Role Phone Kalpesh Dodge MD Primary Care Provider [phone] Social History Tobacco Use Types Packs/Day Years Used Date Smoking Tobacco: Never Assessed Sex and Gender Information Value Date Recorded Sex Assigned at Not on file Gender Identity Not on file Sexual Orientation Not on file Plan of Treatment Not on file Care Teams Supervisor Education Relationship Specialty Start Date End Date Kalpesh Dodge MD [address] [place] [address] PCP - General 12/24/10
--- OUTSIDE RECORDS SUMMARY | 2024-02-21 17:39 | XMS_ITS | Encounter Summary ---
Author Organization [facility] Address [address] [place] [address] Care Team Providers Care Bee Raiser Name Role Phone Kalpesh Dodge MD Primary Care Provider [phone] Encounter Details Date Type Department Care Team (Late st Contact Info) Description 12/22/2010 Results Only [facility] Laboratory Services - [facility] [address] [place] [address] Morgan Burns, PAIGE [address] [place] [address] Social History Tobacco Use Types Packs/Day Years [...] Diagnosis Comments PAP TEST- RESULT ONLY Routine 12/22/2010 0:00 EDT documented in this encounter Results * PAP TEST- RESULT ONLY (12/22/2010 0:00 EDT) Pathology Report: CYTOPATHOLOGY REPORT ? Reports generated via electronic interface contain original data; ? however they are lacking the format of the original report. ? Caution should be taken when reading/interpreti ng unformatted reports. ? Name: ? GAYLE, BRENDON ? Accession #: ? [id number] ? : ? 1980 (Age: 30) ??F ?Collect Date: ? 12/22/2010 ? Location: ? [facility] ? Receive Date: ? 12/24/2010 ? Provider: MORGAN OBRIEN PA ? Copy to: ? Final Report ? SPECIMEN ADEQUACY ? Satisfactory for Evaluation ? - transformation zone component absent ? GENERAL CATEGORIZATION ? Negative for Intraepithelial Lesion or Malignancy ? INTERPRETATION ? Shift in ewelina present suggestive of bacterial vaginosis. ? Last Menstural Period: 11/25/2010 ? Hormonal/Contracep tive status: Tubal ligation ? Specimen/Source: ??Pap Test, Cervix/Endocervix, ThinPrep Imaging System with ? manual evaluation ? Document reviewed and electronically signed by: ? Lambert Rafael, [place](ASCP) ? Report ??Date: 12/30/2010 15:00 ? HPV with Pap Test ? Date Ordered: ? 12/30/2010 ? Status: ?? Signed Out ?Date Complete: ? 01/05/2011 ? By: ??System Interface ? Date Reported: ? 01/05/2011 ? Interpretation ? RESULT: Negative for HPV types 16, 18, 31, 33, 35, 39, 45, 51, 52, ? 56, 58, 59, and 68. ? Comments ? Document reviewed and electronically signed by: ? System Interface ? Report date: 01/05/2011 ? By the signature above, the attending physician certifies that he/she has ? personally conducted a gross and/or microscopic examination of the described ? specimens and rendered or confirmed the above diagnosis. ? End of Report ? [facility] 12/22/2010 12/24/2010 Morgan Burns PA-C PATHOLOGY BELLA BLACKMAN Performing Organization Address City/State/[facility] Co de Phone Number [facility] [address] [place] [address] documented in this encounter Visit Diagnoses Not on filedocumented in this encounter Care Teams Bee Raiser Relationship Specialty Start Date End Date Kalpesh Dodge MD [address] [place] [address] PCP - General 12/24/10 documented as of this encounter
--- OUTSIDE RECORDS SUMMARY | 2024-02-21 17:39 | XMS_ITS | Clinical Summary ---
Author Organization [facility] Address [address] [place] [address] Care Team Providers Care Voucher Examiner Name Role Phone Kalpesh Dodge MD Primary Care Provider [phone] Social History Tobacco Use Types Packs/Day Years Used Date Smoking Tobacco: Never Assessed Sex and Gender Information Value Date Recorded Sex Assigned at Not on file Gender Identity Not on file Sexual Orientation Not on file Plan of Treatment Health Maintenance Due Date Last Done Comments Hepatitis C Screen 1980 Hepatitis B Vaccine (1 of 3 - 19+ 3-dose series) 08/20 COVID-19 Vaccine ( season) 2023 Care Teams Voucher Examiner Relationship Specialty Start Date End Date Kalpesh Dodge MD [address] [place] [address] PCP - General 12/24/10
--- OUTSIDE RECORDS SUMMARY | 2024-02-21 17:39 | XMS_ITS | Encounter Summary ---
Author Organization [facility] Address [address] [place] [address] Care Team Providers Care Saxophone Assembler Name Role Phone Kalpesh Dodge MD Primary Care Provider [phone] Encounter Details Date Type Department Care Team (Late st Contact Info) Description 12/25/2015 Results Only [facility] [phone] Dom Mcgrath, JAVA LEAD ARCHITECT [address] [facility] [address] [place] [address] Social History Tobacco Use Types Packs/Day Years [...] Diagnosis Comments PAP TEST- RESULT ONLY Routine 12/25/2015 0:00 EDT documented in this encounter Results * PAP TEST- RESULT ONLY (12/25/2015 0:00 EDT) Pathology Report: CYTOPATHOLOGY REPORT Reports generated via electronic interface contain original data; however they are lacking the format of the original report. Caution should be taken when reading/interpreti ng unformatted reports. Name: ? BRENDON TELLEZ ? Accession #: ? [id number] ? : ? 1980 (Age: 35) ??F ?Collect Date: ? 12/25/2015 ? Location: ? [facility] ? Receive Date: ? 12/29/2015 ? Provider: DOM MCGRATH JAVA LEAD ARCHITECT Copy to: ? Final Report SPECIMEN ADEQUACY ? Satisfactory for Evaluation - transformation zone component present GENERAL CATEGORIZATION ? Negative for Intraepithelial Lesion or Malignancy INTERPRETATION ? Shift in ewelina present suggestive of bacterial vaginosis. Last Menstrual Period: 12/11/2015 Specimen/Source: ??Pap Test, Cervix/Endocervix, ThinPrep Imaging System with manual evaluation Document reviewed and electronically signed by: ? Princess Adams, NUPUR(ASCP) ? Report ??Date: 01/07/2016 14:47 HPV with Pap Test ? Date Ordered: ? 01/07/2016 ? Status: ?? Signed Out ?Date Complete: ? 01/09/2016 ? By: ??System Interface ? Date Reported: ? 01/09/2016 ? 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 E6 OR E7 mRNA from one or more types of HPV types 16,18,31, 33,35,39,45,51,52, 56,58,59,66, and 68 is detected by risk control product liability director mediated amplification. High and intermediate risk HPV types are associated with most squamous intraepithelial lesions and cervical cancers. Comments Document reviewed and electronically signed by: ? System Interface ? Report date: 01/09/2016 By the signature above, the attending physician certifies that he/she has personally conducted a gross and/or microscopic examination of the described specimens and rendered or confirmed the above diagnosis. End of Report [facility] 12/25/2015 12/29/2015 Dom Mcgrath APRN PATHOLOGY ORDERAB LES Performing Organization Address City/State/[facility] Co de Phone Number [facility] [address] [place] [address] documented in this encounter Visit Diagnoses Not on filedocumented in this encounter Care Teams Saxophone Assembler Relationship Specialty Start Date End Date Kalpesh Dodge MD [address] [place] [address] PCP - General 12/24/10 documented as of this encounter
--- OUTSIDE RECORDS SUMMARY | 2024-02-21 17:39 | XMS_ITS | Encounter Summary ---
Author Organization [facility] Address [address] [place] [address] Care Team Providers Care Worm Raiser Name Role Phone Unavailable Primary Care Provider Unavailabl e Encounter Details Date Type Department Care Team (Late st Contact Info) Description 09/07/2004 Results Only [facility] - Maple conversion [address] [place] [address] Finn Crump MD [address] [place], [place] [id number] Social History Tobacco Use Types Packs/Day Years Used Date Smoking Tobacco: Never Assessed Sex and Gender Information Value Date Recorded Sex Assigned at Not on file Gender Identity Not on file Sexual Orientation Not on file documented as of this encounter Plan of Treatment Not on file documented as of this encounter Procedures Procedure Name Priority Date/Time Associated Diagnosis Comments SURGICAL PATHOLOGY Routine 09/07/2004 0:00 EST documented in this encounter Results * SURGICAL PATHOLOGY (09/07/2004 0:00 EST) Pathology Report: SURGICAL PATHOLOGY REPORT Reports generated via electronic interface contain original data; however they are lacking the format of the original report. Caution should be taken when reading/interpreti ng unformatted reports. Name: ? BRENDON MADRIGAL ? Accession #: ? [id number] ? : ? 1980 (Age: 24) ??F ? Collect Date: ? 09/07/2004 ? Location: ? [facility] ? Receive Date: ? 09/08/2004 ? Provider: FINN CRUMP MD Copy to: VIET DOWELL MD ? Final Pathologic Diagnosis: A. ?Portion of fallopian tube, left, excision: 1. ?Full cross section obtained. 2. ?No pathologic features. B. ?Portion of fallopian tube, right, excision: 1. ?Full cross section obtained. 2. ?No pathologic features. Document reviewed and electronically signed by: ZEENAT CARTAGENA MD Report ??Date: 09/09/2004 15:16 By the signature above, the attending physician certifies that he/she has personally conducted a gross and/or microscopic examination of the described specimens and rendered or confirmed the above diagnosis. Specimen(s) Received: A. ?Left fallopian tube (#1) B. ?Right fallopian tube (#2) Clinical History: ? Failure to progress Gross Description: ? Received in formalin labelled Emmett and left fallopian tube is a sebastian-pink tubular 0.8 cm in length 0.4 cm in diameter soft tissue partially surfaced by a sebastian smooth to wrinkled serosa. ??Upon sectioning, the cut surfaces are sebastian-white with a central pinpoint lumen. ??Two patient account representative sections are submitted as (A). Received in formalin labelled Emmett and right fallopian tube is a sebastian-pink tubular 0.5 cm in length, 0.4 cm in diameter soft tissue. ??Upon sectioning, the cut surfaces are sebastian-white with a central pinpoint lumen. ??No discrete nodules are identified. Two patient account representative sections are submitted as (B). ??(M. Miles)/[facility] End of Report [facility] 09/07/2004 09/08/2004 16: 01 EST Finn Crump MD PATHOLOGY ORDERABLES Performing Organization Address City/State/[facility] Co de Phone Number [facility] [address] [place] [address] documented in this encounter Visit Diagnoses Not on filedocumented in this encounter
--- OUTSIDE RECORDS SUMMARY | 2024-02-21 17:39 | XMS_ITS | Data Portability ---
Author Organization [place] - [facility] [place] [address] Assessment Encounter Date Assessment Date Assessment LastModified by Organization Details LastModified Time 08/16/2023 08/16/2023 Flu vaccine: declines Comirnaty: declines Td: current PCV20: n/a Shingrix: n/a RSV: n/a Pap/ HPV: current- Due next 01/24 Mammogram: Desires screening age 50 CRC: n/a DEXA: n/a Not available 08/16/2023 15:01:01 10/20/2023 10/20/2023 Flu vaccine: declines Comirnaty: declines Td: current PCV20: n/a Shingrix: n/a RSV: n/a Pap/ HPV: current- Due next 01/24 Mammogram: current CRC: n/a DEXA: n/a Follow-up in 3 Months. Call or RTO sooner if needs arise. This appointment was conducted via telephone. A total of 32 minutes was spent at this visit of which at least 50% was spent in direct patient contact. Consent was given to conduct this encounter using appropriate technology. Not available 10/20/2023 14:00:05 12/08/2023 12/08/2023 Flu vaccine: declines Comirnaty: declines Td: current; due 2025 PCV20: n/a Shingrix: n/a RSV: n/a Pap/ HPV: current- scheduled in February with [employer] Mammogram: current CRC: n/a DEXA: n/a Follow-up in 3 Months. Call or RTO sooner if needs arise. Not available 12/08/2023 13:58:02 Plan of Treatment Reminders Order Date Submit Date Provider Last Modified By Organization Details Last Modified Time Details Appointments Office Visit 30 2023 03:00P M Not available Not available Not available Lab HbA1c (hemoglob in A1c), blood 2023 024 [email or web address] [facility] (Registration ), [address] [place] [address] [place], [address], 08/23/2023 09:28:36 TSH, serum, reflex free T4 2023 024 [email or web address] [facility] (Registration ), [address] [place] [address] [place], [address], 08/23/2023 09:28:36 CMP, serum or plasma 2023 024 [facility] (Registration ), [address] [place] [address] [place], [address], 08/16/2023 21:09:49 lipid panel, serum 2023 024 [facility] (Registration ), [address] [place] [address] [place], [address], 08/23/2023 09:28:36 Referral urogyneco logist referral 2023 024 [email or web address] Niall Falcon MD, [address] [place] [address] [place], [address], 01/25/2024 09:09:52 gynecolog ist referral 2023 024 [facility] (Obgyn), [address] [place] [address] [place], [address], 11/23/2023 10:23:27 urogyneco logist referral 2023 024 [email or web address] Niall Falcon MD, [address] [place] [address] [place], [address], 12/08/2023 14:09:12 Procedures None recorded. Surgeries None recorded. Imaging MAMMO, screening , bilateral - No famil.y or personal history of breast CA, no surgeries 2023 024 [facility] (Radiology), [address] [facility] [place], [address], 08/24/2023 11:31:58 Medication Orders oxybutyni n chloride ER 5 mg tablet,ex tended release 24 hr 2023 024 [email or web address] [facility] #[id number], [address] [place] [address], [id number], 12/20/2023 12:24:12 Qvar RediHaler 40 mcg/actua tion HFA breath activated aerosol 2023 024 [facility] #[id number], [address] [place] [address], [id number], 08/16/2023 15:32:58 albuterol sulfate HFA 90 mcg/actua tion aerosol inhaler 2023 024 [facility] #[id number], [address] [place] [address], [id number], 08/16/2023 15:32:57 oxybutyni n chloride ER 10 mg tablet,ex tended release 24 hr 2023 024 [facility] #[id number], [address] [place] [address], [id number], 10/20/2023 14:00:07 Patient TargetsNo targets recorded. Patient Instructions Encounter Date Encounter Id Patient Instructions Last Modified By Organization Details Last Modified Time 08/16/2023 [id number] When You Want to Lose Weight: Care Instructions Not available 08/16/2023 15:01:44 starting a weigh t loss plan: care instructions Not available 08/16/2023 15:01:45 learning about obesity Not available 08/16/2023 15:01:45 12/08/2023 [id number] starting a weigh t loss plan: care instructions Not available 12/08/2023 13:58:34 diet Not available 2023 13:58:34 exercise Not available 2023 13:58:34 Reason for Referral Urogynecologist Referral for Genuine stress incontinence Referring Physician: Yomaira Mcgrath [facility], Encounter Date: 08/16/2023 Payroll And Benefits Specialist Referral for Pr uritus of vulva Referring Physician: Yomaira Mcgrath [facility], Encounter Date: 10/20/2023 Urogynecologist Referral for Genuine stress incontinence Referring Physician: Yomaira Mcgrath [facility], Encounter Date: 12/08/2023 Results Created Date Observation Date Name Description Value Unit Range Abnormal Flag LastModifiedBy Organization Detail LastModifiedTime 08/16/19 24 08/16/2023 HEMOG LOBIN A1C hemoglobin A1C 6.1 % <5.7 high Not Available [address] [place], [address] 08/16/2023 21:09:46 08/16/19 24 08/16/2023 COMPR EHENS PITER METAB OLIC PANEL calcium 9.2 mg/dL 8.5-10 .1 normal Not Available [address] [place], [address] 08/16/2023 21:09:49 08/16/19 24 08/16/2023 COMPR EHENS PITER METAB OLIC PANEL glucose 100 mg/dL 74-106 normal Not Available [address] [place], [address] 08/16/2023 21:09:49 08/16/19 24 08/16/2023 COMPR EHENS PITER METAB OLIC PANEL BUN 11 mg/dL 7-18 normal Not Available [address] [place], [address] 08/16/2023 21:09:49 08/16/19 24 08/16/2023 COMPR EHENS PITER METAB OLIC PANEL creatinine 0.9 mg/dL 0.55-1 .02 normal Not Available [address] [place], [address] 08/16/2023 21:09:49 08/16/19 24 08/16/2023 COMPR EHENS PITER METAB OLIC PANEL estimated GFR 81.86 mL/min /1.73m 2 Not Available [address] [place], [address] 08/16/2023 21:09:49 08/16/19 24 08/16/2023 COMPR EHENS PITER METAB OLIC PANEL total protein 7.6 g/dL 6.4-8. 2 normal Not Available [address] [place], [address] 08/16/2023 21:09:49 08/16/19 24 08/16/2023 COMPR EHENS PITER METAB OLIC PANEL albumin 3.8 g/dL 3.4-5. 0 normal Not Available [address] [place], [address] 08/16/2023 21:09:49 08/16/19 24 08/16/2023 COMPR EHENS PITER METAB OLIC PANEL bilirubin, total 0.2 mg/dL 0.2-1. 0 normal Not Available [address] [place], [address] 08/16/2023 21:09:49 08/16/19 24 08/16/2023 COMPR EHENS PITER METAB OLIC PANEL alk phos 99 U/L 46-116 normal Not Available Mejia matheus[address] [place], [address] 08/16/2023 21:09:49 08/16/19 24 08/16/2023 COMPR EHENS PITER METAB OLIC PANEL sodium 139 mmol/ L 136-14 5 normal Not Available [address] [place], [address] 08/16/2023 21:09:49 08/16/19 24 08/16/2023 COMPR EHENS PITER METAB OLIC PANEL potassium 3.5 mmol/ L 3.5-5. 1 normal Not Available [address] [place], [address] 08/16/2023 21:09:49 08/16/19 24 08/16/2023 COMPR EHENS PITER METAB OLIC PANEL chloride 104 mmol/ L 98-107 normal Not Available [address] [place], [address] 08/16/2023 21:09:49 08/16/19 24 08/16/2023 COMPR EHENS PITER METAB OLIC PANEL CO2 27.5 mmol/ L 21.0-3 2.0 normal Not Available [address] [place], [address] 08/16/2023 21:09:49 08/16/19 24 08/16/2023 COMPR EHENS PITER METAB OLIC PANEL anion gap 7.5 mmol/ L 3-11 normal Not Available [address] [place], [address] 08/16/2023 21:09:49 08/16/19 24 08/16/2023 COMPR EHENS PITER METAB OLIC PANEL AST 21 U/L 15-37 normal Not Available [address] [place], [address] 08/16/2023 21:09:49 08/16/19 24 08/16/2023 COMPR EHENS PITER METAB OLIC PANEL ALT 20 U/L 14-59 normal Not Available [address] [place], [address] 08/16/2023 21:09:49 08/16/19 24 08/16/2023 LIPID 2 cholesterol 226 mg/dL <200 high Not Available [address] [place], [address] 08/16/2023 21:09:50 08/16/19 24 08/16/2023 LIPID 2 triglyceride 178 mg/dL <150 high Not Available [address] [place], [address] 08/16/2023 21:09:50 08/16/19 24 08/16/2023 LIPID 2 HDL cholesterol 46 mg/dL 40-60 Not Available Cristy law [address] [place], [address] 08/16/2023 21:09:50 08/16/19 24 08/16/2023 LIPID 2 calculated LDL 145 mg/dL <100 high Not Available Aleida casillas [address] [facility] [place], [address] 08/16/2023 21:09:50 08/16/19 24 08/16/2023 TSH (W/RE F FT4) TSH (w/ref FT4) 1.84 uIU/m L 0.36-3 .74 normal Not Available [address] [place], [address] 08/16/2023 21:09:51 08/23/19 24 08/23/2023 MAMMO , jamila mei, choco florentino Name: Amanda Tellez Unit #: [id number] Loc: DI Orderi ng Provid er: Dorinda Henderson Accoun t #: [id number] Status : REG CLI Primar y Care Provid er: Dorinda Henderson Date of Exam: Sex: F Admiss ion Date: : 1980 Age: 43 Exam(s ) MG MAMMO SCREEN ING EXAM: MG MAMMO SCREEN ING CLINIC AL HISTOR Y: SCREEN ING MAMMO FOR BREAST CANCER Z12.31 . TECHNI QUE: Bilate ral full field digita l CC and MLO mammog raphic images were obtain ed with 3D tomosy nthesi s and utiliz ing comput er aided detect ion (CAD). COMPAR MITUL: None. This is a baseli ne mammog cole on a 43-yea r-old FINDIN GS: There are no spicul ated masses nor malign ant appear ing microc alcifi cation groups . There is no signif icant john ectura l distor tion nor skin thicke hamida-r etract ion. IMPRES MAXIMILIANO: No radiog raphic eviden ce of malign juanita. BI-RAD S Catego ry 1 - Negati ve Breast Densit y - Catego ry B - Scatte red areas of fibrog landul ar densit y Breast densit y Catego ry C or D implie s that the patien t has dense breast tissue . Dense breast tissue can make it harder to find cancer on a mammog cole. Dense breast tissue is also associ ated with an increa sed risk of breast cancer . This inform ation about the result of the mammog cole report was provid ed to the patien t to raise their awaren ess. Use this report when you speak with the patien t about their risks for breast cancer , which includ es their family histor y. At that time, you may recomm end additi onal screen ing tests (Ultra sound or MRI) as these tests may add signif icant inform ation. A negati ve radiog raphic report should not delay biopsy if a domina nt or clinic ally suspic ious mass is presen t. Up to ten percen t of cancer s are not identi fied on mammog dayna. A negati ve report may reinfo rce clinic al impres maximiliano. Adenos is and dense breast s may obscur e an underl skyler neopla sm. False positi ve report s averag e 6 to 10%. Patien t will receiv e a letter notify ing them of these result s. Ordere d By: Dorinda Henderson CC: ------ ------ ------ ------ ------ ------ ------ ------ ------ ------ ------ ------ - Dictat ed By: Ran Leach M.D. 1617 Transc ribed By: Hany COMER,Pooja christin 1617 This is privil eged, confid ential inform ation intend ed only for the provid er named. Any use or distri bution by any person other than this provid er is strict ly prohib ited. If you receiv e this report in error, please notify us immedi ately at [phone] and return the origin al report to us at the addres s above. Thank- you. [email or web address] [facility] (Radiology) [address], [place], [address], 09/13/2023 10:16:11 Result Notes None recorded. Problems Name Status Onset Date Resolution Date Notes Provider Name and Address Organization Details Recorded Time Nicotine dependence Completed 201008/16/2023 Problem Code: Z87.891; Problem Code Type: ICD-10; YOMAIRA MCGRATH APRN [address], [place], [address] , [facility] 4 07:02:29 Patient status finding Completed 201503/26/2016 12/25/2015 - Comments only - Yomaira Mcgrath APRN - screening for RPR, HIV, GC/ Chlaymdia, Pap with HPV testing. Discussed good sexual practices/ safe sex. Problem Code: Z78.9; Problem Code Type: ICD-10; Not Available [facility] 3 05:56:22 Abnormal cytological finding in specimen from female genital organ Completed 201508/16/2023 Problem Code: R87.618; Problem Code Type: ICD-10; [address], [place], [address] , [facility] 4 07:02:29 Hemorrhoids Completed 201508/16/2023 01/05/2018 - Comments only - Yomaira Mcgrath APRN - asymptomatic. treat OTC medications as desires. Problem Code: K64.9; Problem Code Type: ICD-10; [address], [place], [address] , [facility] 4 07:02:29 Acute vaginitis Completed 201609/23/2016 Problem Code: N76.0; Problem Code Type: ICD-10; Not Available [facility] 3 05:56:23 Exercise induced bronchospasm Completed 201608/16/2023 01/13/2021 - Comments only - Yomaira Mcgrath APRN - Encouraged use of proair PRN. Problem Code: J45.990; Problem Code Type: ICD-10; [address], [place], [address] , [facility] 4 07:05:36 Constipation Completed 201608/16/2023 01/13/2021 - Comments only - Yomaira Mcgrath APRN - Resolved. monitor for now. Problem Code: K59.00; Problem Code Type: ICD-10; [address], [place], [address] , [facility] 4 07:05:35 Nonulcer dyspepsia Completed 201608/16/2023 01/13/2021 - Comments only - Yomaira Mcgrath APRN - diet managed. avoid triggers. Problem Code: K30; Problem Code Type: ICD-10; [address], [place], [address] , [facility] 4 07:05:36 Genuine stress incontinence Completed 201608/16/2023 01/13/2021 - Comments only - Yomaira Mcgrath APRN - Encouraged kegel's/ pelvic floor exercises. Can do yoga. Encouraged PT if not improving. Problem Code: N39.3; Problem Code Type: ICD-10; [address], [place], [address] , [facility] 4 07:05:36 Adjustment disorder with mixed anxiety and depressed mood Completed 201608/16/2023 08/07/2018 - Comments only - Yomaira Mcgrath APRN - with grief. Some improvements. Continue sertraline at current dosage. Continue with coping skills. Continue counseling as desires. Problem Code: F43.23; Problem Code Type: ICD-10; [address], [place], [address] , [facility] 4 07:02:29 Adult health examination Completed 201608/16/2023 01/05/2018 - Comments only - Yomaira Mcgrath APRN - annual exam completed today. hx of abnormal pap/ HPV +. Pap smear and HPV testing completed today. declined STD testing. UTD on vaccines. Problem Code: Z00.00; Problem Code Type: ICD-10; [address], [place], [address] , [facility] 4 07:02:29 Obesity Completed 201608/16/2023 01/13/2021 - Comments only - Yomaira Mcgrath APRN - Encouraged healthy lifestyle. Problem Code: E66.9; Problem Code Type: ICD-10; [address], [place], [address] , [facility] 4 07:02:29 Adjustment disorder with depressed mood Completed 201608/16/2023 Problem Code: F43.21; Problem Code Type: ICD-10; [address], [place], [address] , [facility] 4 07:02:29 Tremor Completed 201708/16/2023 08/07/2018 - Comments only - Yomaira Mcgrath APRN - improved. monitor for now. Problem Code: R25.1; Problem Code Type: ICD-10; [address], [place], [address] , [facility] 4 07:05:35 Herpesvirus infection Completed 201708/16/2023 01/13/2021 - Comments only - Yomaira Mcgrath APRN - without flare. Continue medication regimen. Problem Code: A60.00; Problem Code Type: ICD-10; [address], [place], [address] , [facility] 4 07:14:31 Somatoform disorder Completed 201708/16/2023 01/13/2021 - Comments only - Yomaira Mcgrath APRN - Encouraged mouth guard, FU with dentist. Problem Code: F45.8; Problem Code Type: ICD-10; YOMAIRA MCGRATH APRN [address], [place], [address] , [facility] 4 07:02:29 Adjustment disorder Completed 201808/16/2023 Problem Code: F43.20; Problem Code Type: ICD-10; YOMAIRA MCGRATH APRN [address], [place], [address] , [facility] 4 07:02:29 Moderate major depression, single episode Completed 201808/16/2023 01/13/2021 - Comments only - Yomaira Mcgrath APRN - adjustment disorder. anxiety. unresolved grief. Situational depression. increased stressors, upcoming need for new housing. Encouraged to reach out to [facility] for assistance with housing. Encouraged good coping skills. On higher dose of sertraline she felt like a zombie, lack of emotion. Dose reduction has improved this slightly. Declines new medications at this time. Set up to see in house counseling. Problem Code: F32.1; Problem Code Type: ICD-10; YOMAIRA MCGRATH APRN [address], [place], [address] , [facility] 4 07:05:35 Vulvovaginiti s Completed 201805/16/2019 02/13/2019 - Comments only - Yomaira Mcgrath APRN - noted with vaginal cyst. Encouraged good perianal hygiene, use baby wipes that are non scented over toilet paper. Warm compresses PRN. if no great improvements, consider cephalexin 500mg BID for 7 days. Not Available [facility] 05:56[facility]26 Headache Completed 201808/16/2023 01/13/2021 - Comments only - Yomaira Mcgrath APRN - once per month. NSAIDs effective. Monitor for now. Problem Code: R51; Problem Code Type: ICD-10; [address], [facility] [address] , [facility] 4 07:05:35 Essential hypertension Completed 202008/16/2023 Problem Code: I10; Problem Code Type: ICD-10; [address], [facility] [address] [place] [address] 4 07:05:36 Anxiety Completed 202008/16/2023 Problem Code: F41.8; Problem Code Type: ICD-10; [address], [address] 4 07:02:29 Generalized hyperhidrosis Completed 202108/16/2023 Problem Code: R61; Problem Code Type: ICD-10; [address], [facility] [address] [place] [address] 4 07:05:35 Paresthesia Completed 202108/16/2023 Problem Code: R20.2; Problem Code Type: ICD-James; [address], [facility] [address] , [facility] 4 07:05:36 Seasonal allergic rhinitis Completed 202108/16/2023 Problem Code: J30.2; Problem Code Type: ICD-10; [address], [facility] [address] [place] [address] 4 07:05:35 Pain in right foot Completed 202108/16/2023 Problem Code: M79.671; Problem Code Type: ICD-10; [address], [facility] [address] [place] [address] 4 07:05:35 Hyperlipidemi a screening Completed 202108/16/2023 Problem Code: Z13.220; Problem Code Type: ICD-10; [address], [facility] [address] [place] [address] 4 07:02:29 Impaired fasting glycemia Completed 202108/16/2023 Problem Code: R73.01; Problem Code Type: ICD-10; [address], [facility] [address] [place] [address] 4 06:58:02 Itching of skin Completed 202208/16/2023 Problem Code: L29.8; Problem Code Type: ICD-10; [address], [facility] [address] [place] [address] 4 07:02:29 Atypical squamous cells of undetermined significance on cervical Papanicolaou smear Completed 202208/16/2023 Problem Code: R87.610; Problem Code Type: ICD-10; [address], [facility] [address] [place] [address] 4 07:02:29 Pain of toe of left foot Completed 201501/05/2018 Problem Code: M79.675; Problem Code Type: ICD-10; Not Available [facility] 3 05:56:36 Candidiasis of vagina Completed 201609/23/2016 09/16/2016 - Comments only - Carley Stressenger [employer] - - Most likely differentials include candidiasis [...] Problem Code Type: ICD-10; [address], [place], [address] , [facility] 4 13:51:23 Spasm Completed 201806/11/2022 Problem Code: [...] Constipation Active 202301/13/2021 - Comments only - Yomaira Mcgrath APRN - Resolved. monitor for now. Problem Code: K59.00; Problem Code Type: ICD-10; YOMAIRA MCGRATH APRN [address], [place], [address] , [facility]. 4 07:05:35 Moderate major depression, single episode Active 202301/13/2021 - Comments only - Yomaira Mcgrath APRN - adjustment disorder. anxiety. unresolved grief. Situational depression. increased stressors, upcoming need for new housing. Encouraged to reach out to [facility] for assistance with housing. Encouraged good coping skills. On higher dose of sertraline she felt like a zombie, lack of emotion. Dose reduction has improved this slightly. Declines new medications at this time. Set up to see in house counseling. Problem Code: F32.1; Problem Code Type: ICD-10; YOMAIRA MCGRATH APRN [address], [place], [address] , [facility] 4 07:05:35 Headache Active 202301/13/2021 - Comments only - Yomaira Mcgrath APRN - once per month. NSAIDs effective. Monitor for now. Problem Code: R51; Problem Code Type: ICD-10; [address], [place], [address] , [facility] 4 07:05:35 Tremor Active 202308/07/2018 - Comments only - Yomaira Mcgrath APRN - improved. monitor for now. Problem Code: R25.1; Problem Code Type: ICD-10; [address], [place], [address] , [facility] 4 07:05:35 Generalized hyperhidrosis Active 2023 Problem Code: R61; Problem Code Type: ICD-10; [address], [place], [address] , [facility] 4 07:05:35 Pain in right foot Active 2023 Problem Code: M79.671; Problem Code Type: ICD-10; [address], [place], [address] , [facility] 4 07:05:35 Seasonal allergic rhinitis Active 2023 Problem Code: J30.2; Problem Code Type: ICD-10; [address], [place], [address] , [facility] 4 07:05:35 Nonulcer dyspepsia Active 202301/13/2021 - Comments only - Yomaira Mcgrath APRN - diet managed. avoid triggers. Problem Code: K30; Problem Code Type: ICD-10; [address], [place], [address] , [facility] 4 07:05:35 Essential hypertension Active 2023 Problem Code: I10; Problem Code Type: ICD-10; [address], [facility] [address] , [facility] 4 07:05:36 Exercise induced bronchospasm Active 202301/13/2021 - Comments only - Yomaira Mcgrath APRN - Encouraged use of proair PRN. Problem Code: J45.990; Problem Code Type: ICD-10; [address], [facility] [address] , [facility] 4 07:05:36 Paresthesia Active 2023 Problem Code: R20.2; Problem Code Type: ICD-10; [address], [facility] [address] [place] [address] 4 07:05:36 Genuine stress incontinence Active 202301/13/2021 - Comments only - Yomaira Mcgrath APRN - Encouraged kegel's/ pelvic floor exercises. Can do yoga. Encouraged PT if not improving. Problem Code: N39.3; Problem Code Type: ICD-10; [address], [facility] [address] , [facility] 4 07:05:36 Bruxism Active [address], [facility] [address] , [facility] 4 07:05:25 Herpesvirus infection Active 202301/13/2021 - Comments only - Yomaira Mcgrath APRN - without flare. Continue medication regimen. Problem Code: A60.00; Problem Code Type: ICD-10; [address], [facility] [address] , [facility] 4 07:14:31 Snoring Active [address], [facility] [address] , [facility] 4 14:32:53 Pain of right shoulder joint Active [address], [facility] [address] , [facility] 4 14:42:06 Prediabetes Active [address], [facility] [address] , [facility] 4 05:33:33 Hyperlipidemi a Active [address], [facility] [address] , [facility] 4 05:34:00 Impaired fasting glycemia Active 2023 Problem Code: R73.01; Problem Code Type: ICD-10; [address], [facility] [address] , [facility] 4 06:58:01 Pruritus of vulva Active [address], [facility] [address] [facility] 4 13:43:55 Abdominal pain Active 2023 Problem Code: R10.9; Problem Code Type: ICD-10; [address], [facility] [address] , [facility] 4 13:51:22 Problem Notes None recorded. Procedures Surgical History None recorded. Imaging Results Imaging Date Name Status LastModified by Organiz ation Details LastModified Time 08/23/2023 MAMMO, screening, bilateral completed [email or web address] [facility] (Radiology) [address] [place], [address], 09/13/2023 10:16:11 Procedure Notes None recorded. Medical Equipment None Reported. 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 6 g 98 % 98 % 98 /min 144 mm[Hg] 76 mm[Hg] CONSTANZA GUAJARDO CMA [facility]. 4 14:11:56 Date Recorded Systolic blood pressure Diastolic blood pressure Provider Name and Address Organization Details Last Updated DateTime 08/16/2023 130 mm[Hg] 72 mm[Hg] YOMAIRA MCGRATH, MANAGER ENVIRONMENTAL [address], [place], [address], [facility] 08/16/2023 14:49:41 Date Recorded Body height Provider Name an d Address Organization Details Last Updated DateTime 10/20/2023 177.546 cm CONSTANZA GUAJARDO DIRECTOR [facility] [facility] 10/20/2023 12:59:32 Date Recorded Body height Body mass index (BMI) Body weight Body temperature Oxygen saturation Oxygen saturation in Arterial blood by Pulse oximetry Heart rate Systolic blood pressure Diastolic blood pressure Provider Name and Address Organization Details Last Updated DateTime 177.55 cm 38.3 kg/m2 000232. 97 g 98.3 [degF] 98 % 98 % 67 /min 136 mm[Hg] 72 mm[Hg] CONSTANZA GUAJARDO CIARA [facility] 13:27:24 Social History Question Answer Notes LastModified by Organizat ion Details LastModified Time Tobacco Smoking Status Former Smoker CONSTANZA CIARA GUAJARDO null, [facility] 08/16/2023 14:17:10 When Did You Quit Smoking? [...] Td(adult) unspecified formulation 09/09/2005 completed Not Available [facility] 05/13/2023 06:12:03 COVID-19 vaccine, vector-nr, rS-Ad26, PF, 0.5 mL 12/05/2020 completed Not Available [facility] 05/13/2023 06:12:03 Past Encounters Encounter ID Performer Location Encounter Start Date Encounter Closed Date Diagnosis/Indication Diagnosis SNOMED-CT Code [id number] YOMAIRA GUTIÉRREZ[address] [address] 08/16/2023 14:05:51 08/16/2023 15:29:42 Constipation 66900695 Moderate m ajor depression, single episode 52827350 Headache 51135094 Herpesvirus infection 23 451556 Tremor 41687995 Generalize d hyperhidrosis 019832427 Seasonal a llergic rhinitis 053856860 Nonulcer dyspepsia 75135 07 Impaired f asting glycemia 825475023 Essential hypertension 27942764 Exercise i nduced bronchospasm 393015322 Paresthesia 77906820 Genuine st ress incontinence 64864783 Bruxism 103575187 Screening mammography 24 249263 Snoring 19115716 Pain of ri ght shoulder joint 059648160091492 00 [id number] YOMAIRA MCGRATH[address] [address] 10/20/2023 12:57:34 10/20/2023 15:48:25 Tremor 05603383 Headache 58861742 Moderate m ajor depression, single episode 51503587 Herpesvirus infection 23 157819 Impaired f asting glycemia 756597860 Genuine st ress incontinence 33903960 Nonulcer dyspepsia 28156 07 Constipation 20584462 Exercise i nduced bronchospasm 782197533 Essential hypertension 27516173 Generalize d hyperhidrosis 106894380 Paresthesia 22950805 Seasonal a llergic rhinitis 494744536 Bruxism 215723478 Snoring 41934778 Pain of ri ght shoulder joint 236731295262713 00 Pruritus of vulva 525398 00 [id number] YOMAIRA MCGRATH APRN [address] [address] 12/08/2023 13:07:02 12/08/2023 14:09:11 Tremor 65977080 Headache 23366719 Moderate m ajor depression, single episode 72218031 Herpesvirus infection [address] ress incontinence 58407643 Nonulcer dyspepsia 92052 07 Constipation 37086925 Exercise i nduced bronchospasm 632147620 Essential hypertension 91661274 Generalize d hyperhidrosis 081791526 Paresthesia 04206748 Seasonal a llergic rhinitis 359282929 Bruxism 295128330 Snoring 54711478 Pain of ri ght shoulder joint 056930544692196 00 Prediabetes 708678518 Pruritus of vulva 238306 00 Abdominal pain 82425390 Health Concerns Section Related Observation LastModified by Organization Detai ls LastModified Time None Recorded Concern Status LastModified by Organization Details LastModified Time None Recorded Advance Directives Directive None Recorded Payers Encounter Date Sequence Insurance Name Policy Number Policy Robles Covered Member ID Robles Member ID Guarantor Name 08/16/2023 1 [facility] (MEDICAID) Abril Tellez [id number] Abril Tellez 10/20/2023 1 *SELF PAY* Jyoti Tellez Notes Date Note Type Note Provider Name and Address Organization Details Recorded Time 08/16/2023 text/html HPI Notes: Is he re for follow-up: - Tremor. Have been monitoring. - Headaches. APAP PRN. - Depression. Adjustment disorder. Anxiety. Grief. Situational depression. Stress. Takes sertraline. - Herpes. Takes acyclovir suppressive. - Impaired fasting glucose. Obesity. Working on on lifestyle. - Stress incont. Without meds. - Dyspepsia. Diet managed. - Constipation. Rectal bleeding hemorrhoids. Diet managed. - Exercise induced bronchospasm. Taking Claritin, proair. Last visit started on qvar inhaler. Started NAC BID last visit. Has been declining PFTs. - HTN. Takes Lisinopril. - Night sweats. Suspect r/t sertraline. - paresthesia, hands. Right hand. Have been monitoring. - Seasonal allergies. Takes antihistamines. - Foot pain, right. Managed with good foot wear. - Bruxism. Has been encouraged to work with dentist, to consider mouth guard. YOMAIRA MCGRATH, MANAGER ENVIRONMENTAL [address], [place], [address], [facility] 08/16/2023 15:32:55 10/20/2023 text/html HPI Notes: Is he re for follow-up: no big concerns. questions about her ditropan; the s/e from this medication, is having nausea and last few weeks is having diarrhea. - Tremor. Have been monitoring. Has been declining neuro eval. - Headaches. APAP PRN. - Depression. Adjustment disorder. Anxiety. Grief. Situational depression. Stress. Takes sertraline. - Herpes. Takes acyclovir suppressive. - Impaired fasting glucose. Obesity. Working on on lifestyle. - Stress incont. Last visit started on ditropan ER and was referred to urogyn. the medication helped greatly at first but then symptoms returned and has had 3 significant incont episodes. Not eating as much from the nausea. - Dyspepsia. Diet managed. Takes tums/ pepcid PRN. - Constipation. Rectal bleeding hemorrhoids. Diet managed. - Exercise induced bronchospasm. Taking Claritin, proair.Last visit sent in script for qvar; cost has been an issue for her. Has albuterol PRN. Declines PFTs. Has been able to start her qvar inhaler and has been pleased with the response. since starting qvar has only used emergency inhaler 4 times. - HTN. Takes Lisinopril. - Night sweats. Suspect r/t sertraline. - paresthesia, hands. Right hand. Have been monitoring. - Seasonal allergies. Takes antihistamines. - Foot pain, right. Managed with good foot wear. - Bruxism. Has been encouraged to work with dentist, to consider mouth guard. No longer grinds. - Pain of right shoulder. Feels r/t repeated motion from work. Last visit was encouraged routine stretching. YOMAIRA MCGRATH APRN [address], [place], [address], [place] [facility]. 10/20/2023 14:00:56 12/08/2023 text/html HPI Notes: Is he re for follow-up: For the month of December, she does not have prescription coverage/ health insurance. Has not been able to increase the ditropan to 10mg daily. She should have coverage starting January 01. - Tremor. Have been monitoring. -- update 12.08.23. Feels tremors are a little worse. People have noticed it more. Does tend to drop stuff. - Headaches. APAP PRN. -- update 12.08.23. When she sits down for a long [...] Situational depression. Stress. Takes sertraline. -- update 12.08.23. it is good. - Herpes. Takes acyclovir suppressive. -- update .12.25. no herpes flare. - Prediabetes. Obesity. Working [...] NAC BID. Has been declining PFTs. -- .12.25. has used emergency inhaler 2 times in [...] ROS. - Pruritus of vulva. 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 -- update 12.08.23. The ointment has provided relief. YOMAIRA MCGRATH, MANAGER ENVIRONMENTAL [address], [place], [address], [facility]. 12/08/2023 15:52:03 OBGyn Episode No OBEpisode recorded.
--- OUTSIDE RECORDS SUMMARY | 2024-02-21 17:39 | XMS_ITS | Encounter Summary ---
Author Organization [facility] Address [address] [place] [address] Care Team Providers Care Acute Care Surgeon Name Role Phone Kalpesh Dodge MD Primary Care Provider [phone] Encounter Details Date Type Department Care Team (Late st Contact Info) Description 09/04/2020 Lab Requisition [facility] Pathology & Laboratory Medicine - [address] [address] Outr Resulting Lab, Provider Social History Tobacco Use Types Packs/Day Years Used Date Smoking Tobacco: Never Assessed Sex and Gender Information Value Date Recorded Sex Assigned at Not on file Gender Identity Not on file Sexual Orientation Not on file documented as of this encounter Plan of Treatment Not on file documented as of this encounter Visit Diagnoses Not on filedocumented in this encounter Care Teams Acute Care Surgeon Relationship Specialty Start Date End Date Kalpesh Dodge MD [address] [place] [address] PCP - General 12/24/10 documented as of this encounter
--- OUTSIDE RECORDS SUMMARY | 2024-02-21 17:39 | XMS_ITS | Encounter Summary ---
Author Organization [facility] Address [address] [place] [address] Care Team Providers Care Lehr Tender Name Role Phone Kalpesh Dodge MD Primary Care Provider [phone] Encounter Details Date Type Department Care Team (Late st Contact Info) Description 12/27/2016 Results Only [facility] [phone] Dom Mcgrath, GRANT MANAGER [address] [facility] [address] [place] [address] Social History Tobacco Use Types Packs/Day Years [...] Diagnosis Comments PAP TEST- RESULT ONLY Routine 12/27/2016 0:00 EDT documented in this encounter Results * PAP TEST- RESULT ONLY (12/27/2016 0:00 EDT) Pathology Report: CYTOPATHOLOGY REPORT Reports generated via electronic interface contain original data; however they are lacking the format of the original report. Caution should be taken when reading/interpreti ng unformatted reports. Name: ? BRENDON TELLEZ ? Accession #: ? [id number] ? : ? 1980 (Age: 36) ??F ?Collect Date: ? 12/27/2016 ? Location: ? [facility] ? Receive Date: ? 12/30/2016 ? Provider: DOM MCGRATH GRANT MANAGER Copy to: ? Final Report SPECIMEN ADEQUACY ? Satisfactory for Evaluation - transformation zone component present - scant squamous epithelial component secondary to excessive inflammation GENERAL CATEGORIZATION ? Negative for Intraepithelial Lesion or Malignancy ?? Last Menstrual Period: 11/30/2016 Hormonal/Contracep tive status: None Infection History: Pos for HPV: 2016 Specimen/Source: ??Pap Test, Cervix/Endocervix, ThinPrep Imaging System with manual evaluation Document reviewed and electronically signed by: ? NUPUR Santiago(ASCP) ? Report ??Date: 01/10/2017 09:54 HPV with Pap Test ? Date Ordered: ? 01/10/2017 ? Status: ?? Signed Out ?Date Complete: ? 01/11/2017 ? By: ??System Interface ? Date Reported: ? 01/11/2017 ? Interpretation RESULT: Negative for HPV. No E6 or E7 mRNA is detected from HPV types 16,18,31,33,35, 39,45,51,52,56,58, 59,66, and 68 by painter helper sign mediated amplification. Comments Document reviewed and electronically signed by: ? System Interface ? Report date: 01/11/2017 By the signature above, the attending physician certifies that he/she has personally conducted a gross and/or microscopic examination of the described specimens and rendered or confirmed the above diagnosis. End of Report [facility] 12/27/2016 12/30/2016 Dom Mcgrath APRN PATHOLOGY ORDERAB LES [facility] [address] [place] [address] documented in this encounter Visit Diagnoses Not on filedocumented in this encounter Care Teams Lehr Tender Relationship Specialty Start Date End Date Kalpesh Dodge MD [address] [place] [address] PCP - General 12/24/10 documented as of this encounter
--- OUTSIDE RECORDS SUMMARY | 2024-02-21 17:39 | XMS_ITS | Encounter Summary ---
Author Organization [facility] Address [address] [place] [address] Care Team Providers Care Retail Experience Specialist Name Role Phone Kalpesh Dodge MD Primary Care Provider [phone] Encounter Details Date Type Department Care Team (Latest Contact Info) Description 01/13/2023 Lab Requisition [facility] Pathology & Laboratory Medicine - [address] [address] Yomaira Gonzales, K [employer]CHOOL PROFESSIONAL [address] [address] Encounter for screening for malignant neoplasm of cervix; Encounter for gynecological examination (general) (routine) without abnormal findings; Encounter for general adult medical examination without abnormal findings Social History Tobacco Use Types Packs/Day Years Used Date Smoking Tobacco: Never Assessed Sex and Gender Information Value Date Recorded Sex Assigned at Not on file Gender Identity Not on file Sexual Orientation Not on file documented as of this encounter Plan of Treatment Not on file documented as of this encounter Procedures Procedure Name Priority Date/Time Associated Diagnosis Comments PAP TEST Today 01/10/2023 15:00 EDT Encounter for screening for malignant neoplasm of cervix Encounter for gynecological examination (general) (routine) without abnormal findings Encounter for general adult medical examination without abnormal findings HPV GENOTYPES 16 AND 18/45 Today 01/10/2023 15:00 EDT Encounter for screening for malignant neoplasm of cervix Encounter for gynecological examination (general) (routine) without abnormal findings Encounter for general adult medical examination without abnormal findings HPV DNA DETECTION WITH GENOTYPING, PCR Today 01/10/2023 15:00 EDT Encounter for screening for malignant neoplasm of cervix Encounter for gynecological examination (general) (routine) without abnormal findings Encounter for general adult medical examination without abnormal findings documented in this encounter Results * HPV GENOTYPES 16 AND 18/45 (01/10/2023 15:00 EDT) HPV High Risk type 16, PCR Negative Negative 01/25/2023 12:36 EDT [facility] HPV18/45 RNA (HPV18/45) Negative Negative 01/25/2023 12:36 EDT [facility] Papanicolaou smear specimen (specimen) CERVIX UTERI STRUCTURE / Unknown 01/10/2023 15:00 EDT 01/21/2023 9:18 EDT Yomaira Gonzales APRN MICROBIOLOGY - GE NERAL ORDERABLES Performing Organization Address [facility] Co de Phone Number [facility] [address] [place] [address] * (ABNORMAL) HUMAN PAPILLOMAVIRUS (HPV) DETECTION-HIGH RISK TYPES (01/10/2023 15:00 EDT) HPV other High Risk types, PCR Positive( A) Negative 01/22/2023 22:33 EDT [facility] Comment:E6 OR E7 mRNA from o ne or more types of HPV types 16,18,31,33,35,39,45,51,52,56,58,59,66, and 68 is detected by brief writer mediated amplification. High and intermediate risk HPV types are associated with most squamous intraepithelial lesions and cervical cancers. Papanicolaou smear specimen (specimen) CERVIX UTERI STRUCTURE / Unknown 01/10/2023 15:00 EDT 01/21/2023 9:18 EDT Yomaira Gonzales APRN MICROBIOLOGY - GE NERAL ORDERABLES Performing Organization Address [facility]/ZIP Co de Phone Number [facility] [address] [place] [address] * PAP TEST (01/10/2023 15:00 EDT) Specimens A. Cervix and/or Endocervix , ThinPrep Imaging System with Manual Evaluation 01/25/2023 12:36 [facility] Specimen Adequacy Satisfactory for Evaluation - transformation zone component present 01/25/2023 12:36 [facility] General Categorization Epithelial Cell Abnormality 01/25/2023 12:36 [facility] Descriptive Diagnosis Squamous Cell Abnormality - Atypical squamous cells, undetermined significance (ASC-US). Shift in ewelina present suggestive of bacterial vaginosis. 01/25/2023 12:36 [facility] Educational Comments [facility] recommends following the ASCCP's management guidelines which may be found at www.asccp.org 01/25/2023 12:36 [facility] Attestation By the signature below, the attending physician certifies that they have personally conducted a gross and/or microscopic examination of the described specimens and rendered or confirmed the above diagnosis. 01/25/2023 12:36 [facility] at 1236 Clinical History SEE BELOW 01/26/20 12:36 [facility] HPV The result for the Human Papillomavirus (HPV) Detection-High Risk Types is Positive . E6 OR E7 mRNA from one or more types of HPV types 16,18,31,33,35,39 ,45,51,52,56,58,5 9,66, and 68 is detected by brief writer mediated amplification. High and intermediate risk HPV types are associated with most squamous intraepithelial lesions and cervical cancers. Testing was performed on specimen [id number] and was resulted on 01/21/2023 1704 EDT by EDIE, LAB INSTRUMENT RESULTS IN 01/25/2023 12:36 [facility] Genotyping 16 & 18/45 The results for the HPV Genotypes 16 and 18/45 are Negative for the HPV16 RNA and Negative for the HPV18/45 RNA (HPV18/45). Testing was performed on specimen [id number] and was resulted on 01/25/2023 1236 EDT by EDIE, LAB INSTRUMENT RESULTS IN 01/25/2023 12:36 EDT [facility] Performing Lab [facility] 01/25/2023 12:36 EDT [facility] Scanned Images 01/25/2023 12:36 EDT [facility] Papanicolaou smear specimen (specimen) CERVIX UTERI STRUCTURE / Unknown 01/10/2023 15:00 EDT 01/13/2023 15:46 EDT Yomaira Gonzales K [employer] SCHOOL PROFESSIONAL PATHOLOGY ORDERAB LES [facility] [address] [place] [address] documented in this encounter Visit Diagnoses Diagnosis Encounter for screening for malignant neoplasm of cervix Screening for malignant neoplasm of the cervix Encounter for gynecological examination (general) (routine) without abnormal findings Encounter for general adult medical examination without abnormal findings Unspecified general medical examination documented in this encounter Care Teams Retail Experience Specialist Relationship Specialty Start Date End Date Kalpesh Dodge MD [address] [place] [address] PCP - General 12/24/10 documented as of this encounter
--- OUTSIDE RECORDS SUMMARY | 2024-02-21 17:39 | XMS_ITS | Encounter Summary ---
Author Organization [facility] Address [address] [place] [address] Care Team Providers Care Psychosocial Rehabilitation Counselor Name Role Phone Unavailable Primary Care Provider Unavailabl e Encounter Details Date Type Department Care Team (Late st Contact Info) Description 08/15/2001 Results Only [facility] - [facility] [address] [place] [address] Catalina Barron FNP [address] [place] [address] Social History Tobacco Use Types Packs/Day Years Used Date Smoking Tobacco: Never Assessed Sex and Gender Information Value Date Recorded Sex Assigned at Not on file Gender Identity Not on file Sexual Orientation Not on file documented as of this encounter Plan of Treatment Not on file documented as of this encounter Procedures Procedure Name Priority Date/Time Associated Diagnosis Comments CYTOPATHOLOGY Routine 08/15/2001 0:00 EST documented in this encounter Results * CYTOPATHOLOGY (08/15/2001 0:00 EST) Pathology Report: CYTOPATHOLOGY REPORT Reports generated via electronic interface contain original data; however they are lacking the format of the original report. Caution should be taken when reading/interpreti ng unformatted reports. Name: ? BRENDON MADRIGAL ? Accession #: ? [id number] : ? 1980 (Age: 20) ??F ?Collect Date: ? 08/15/2001 Location: ? [facility] ? Receive Date: ? 08/18/2001 Provider: ?CATALINA BARRON PROGRAM PROJECT MANAGER Copy to: ? Specimen/Source: ?Conventional Pap Test, Cervix/Endocervix Last Menstrual Period: ? 08/14/01 Hormonal/Contracep tive Status: ? Control Pills Other: ? Additional clinical information: Presently having period. ? SPECIMEN ADEQUACY ? Satisfactory for Evaluation - transformation zone component present - scant squamous epithelial component GENERAL CATEGORIZATION ? Negative for Intraepithelial Lesion or Malignancy ? Document reviewed and electronically signed by: ? NUPUR Vo(ASCP) ? Report Date: ??08/21/2001 08:26 End of Report [facility] 08/15/2001 08/18/2001 Catalina Barron PROGRAM PROJECT MANAGER PATHOLOGY ORDERABLES Performing Organization Address City/State/[facility] Co de Phone Number [facility] [address] [place] [address] documented in this encounter Visit Diagnoses Not on filedocumented in this encounter
== END 2024-02-21 17:38 | disposition home or self-care (01) ==
LOC: LBN 17:37
PROVIDERS: PCP Nurse Practitioner Family; Visit Provider Obstetrics & Gynecology
DX: Z12.4 Encounter for screening for malignant neoplasm of cervix (principal)
CPT/HCPCS: 88142; 87624

== ENCOUNTER 2024-03-22 16:41 | Outpatient (REF) | payer OTHER, SELFPAY ==
--- NOTE | 2024-03-22 16:30 | ENDO_PTH ---
PATIENT: Abril Tellez LOC: N U#:[id number] AGE/SX: 43/F ROOM: RE03/22/[address]: Evon Peralta DO : 1980 BED: DIS: 03/22/2024 SPEC #: [id number] RECD: 03/22/24 17:07 STATUS: LOPEZ REQ #: [id number] CURLY: 03/22/24 16:[address]: Evon Peralta DEPT: Surgical Specimen RECD BY: Lisandra Head ENTERED: 03/22/24 17:07 SP TYPE: Endo OTHR DR: Yomaira Gonzales Tissues: 1 - ENDOCERVICAL BX/CURRETTE Procedures: GROSS AND MICRO LEVEL 4 Comments: [id number]
== END 2024-03-22 16:42 | disposition home or self-care (01) ==
LOC: LBN 16:41
PROVIDERS: PCP Nurse Practitioner Family; Visit Provider Obstetrics & Gynecology
DX: R87.619 Unspecified abnormal cytological findings in specimens from cervix uteri (principal)
CPT/HCPCS: 88305

== ENCOUNTER 2025-02-05 17:17 | Outpatient (REF) | payer OTHER, SELFPAY ==
[2025-02-05 16:09] LABS: Abs Immature Grans 0.02 10^3/uL (0.0-0.06); HCT 38.1 % (36.0-46.0); HGB 12.4 g/dL (11.2-15.7); Immature Grans % 0.2 %; MCH 27.1 pg (27.0-33.0); MCHC 32.5 % (32.0-36.0); MCV 83 fL (80-95); MPV 10.4 fL (8.0-11.0); Platelet Count 315 10^3/uL (130-400); RBC 4.57 10^6/uL (3.93-5.22); RDW 13.1 % (11.7-14.6); RDW-SD 39.8 fL; WBC 8.18 10^3/uL (4.4-10.8)
[2025-02-05 16:13] LABS: Glucose Negative (Negative)
[2025-02-05 16:19] LABS: C & S Indicated? No; RBC 0-2 HPF (0-2); WBC 0-2 HPF (0-5)
[2025-02-05 16:39] LABS: Magnesium 2.0 mg/dL (1.8-2.4); Vitamin B12 179 pg/mL (193-986)
[2025-02-05 21:36] LABS: ALT 18 U/L (14-59); AST 14 U/L (15-37); Albumin 4.0 g/dL (3.4-5.0); Alkaline Phosphatase 105 U/L (46-116); Anion Gap 7.7 mmol/L (3-11); BUN 10 mg/dL (7-18); Bilirubin, Total 0.4 mg/dL (0.2-1.0); CO2 29.3 mmol/L (21.0-32.0); Calcium 8.9 mg/dL (8.5-10.1); Chloride 104 mmol/L (98-107); Estimated GFR 109.30 (mL/min/1.73m2); Glucose 106 mg/dL (74-106); Potassium 3.8 mmol/L (3.5-5.1); Sodium 141 mmol/L (136-145); Total Protein 7.2 g/dL (6.4-8.2)
[2025-02-06 02:38] LABS: COMMENT (LAB VIEW ONLY) 152.25 mg/dL; Microalb ug/mg Crea 4.5 ug/mg Cr
== END 2025-02-05 17:18 | disposition home or self-care (01) ==
LOC: NCHCN 17:17
PROVIDERS: PCP Nurse Practitioner Family; Visit Provider Nurse Practitioner Family
DX: K30 Functional dyspepsia (principal); I10 Essential (primary) hypertension; R10.9 Unspecified abdominal pain
CPT/HCPCS: 80053; 81003; 81015; 82043; 82570; 82607; 83735; 85025

== ENCOUNTER 2025-04-09 13:24 | Outpatient (REF) | payer OTHER, SELFPAY ==
--- NOTE | 2025-04-09 13:08 | PAPFT_PTH ---
PATIENT: Abril Tellez LOC: [facility] U#:[id number] AGE/SX: 44/F ROOM: RE04/09/[address]: Evon Peralta DO : 1980 BED: DIS: 04/09/2025 SPEC #: [id number] RECD: 04/09/25 17:52 STATUS: SUKHMicha REQ #: [id number] CURLY: 04/09/25 13:[address]: Evon Peralta DEPT: [facility] Cytology RECD BY: Lisandra Head ENTERED: 04/09/25 17:52 SP TYPE: PAPFT OTHR DR: Yomaira Gonzales Tissues: 1 - CX/ENDOCX FOR PAP SMEARS Procedures: PAP THIN PREP/[facility] Screening HPV DNA PROBE Comments: [id number] (HPV 16 & 18/45)
== END 2025-04-09 13:25 | disposition home or self-care (01) ==
LOC: LBN 13:24
PROVIDERS: PCP Nurse Practitioner Family; Visit Provider Obstetrics & Gynecology
DX: Z12.4 Encounter for screening for malignant neoplasm of cervix (principal)
CPT/HCPCS: 88142; 87624

== ENCOUNTER 2025-05-20 14:22 | Outpatient (REF) | payer OTHER, SELFPAY ==
--- NOTE | 2025-05-20 14:00 | ENDO_PTH ---
PATIENT: Abril Tellez LOC: [facility] U#:[id number] AGE/SX: 44/F ROOM: RE05/20/[address]: Evon Peralta DO : 1980 BED: DIS: 05/20/2025 SPEC #: [id number] RECD: 05/20/25 17:34 STATUS: LOPEZ RE #: [id number] CURLY: 05/20/25 14:[address]: Evon Peralta DEPT: Surgical Specimen RECD BY: Lisandra Head ENTERED: 05/20/25 17:35 SP TYPE: Endo OTHR DR: Yomaira Gonzales Tissues: 1 - ENDOCERVICAL BX/CURRETTE Procedures: GROSS AND MICRO LEVEL 4 Comments: [id number]
== END 2025-05-20 14:23 | disposition home or self-care (01) ==
LOC: LBN 14:22
PROVIDERS: PCP Nurse Practitioner Family; Visit Provider Obstetrics & Gynecology
DX: R87.612 Low grade squamous intraepithelial lesion on cytologic smear of cervix (LGSIL) (principal)
CPT/HCPCS: 88305

== ENCOUNTER 2025-05-21 11:58 | Emergency (ER) | payer OTHER, SELFPAY ==
[2025-05-21 12:00] VITALS: BP 163/84; PULSE 96; RESP 15; TEMP 36.8; O2SAT 94
--- NOTE | 2025-05-21 12:01 | W.ED.GENAD ---
Discharge Plan Disposition Patient Disposition: Home Discharge Details Clinical Impression: Acute right lower quadrant pain, Cyst of left ovary Primary Care Provider: Yomaira Gonzales ED Provider: John Paul Ellis Home Meds and New Rx's Prescriptions: Continued nystatin-triamcinolone 100,000-0.1 unit/g-% cream 1 applic topical BID Qty: 60 1RF pantoprazole 40 mg tablet,delayed release (DR/EC) 40 mg PO DAILY Patient Comments: TAKE 1 TABLET BY MOUTH EVERY DAY loratadine [Claritin RediTabs] 10 MG tablet,disintegrating 10 mg PO DAILY oxybutynin chloride 5 mg tablet 5 mg PO DAILY beclomethasone dipropionate 40 mcg/actuation aerosol 40 mcg inhalation .Q4-6H PRN naproxen sodium [Aleve] 220 mg capsule 220 mg PO BID PRN acyclovir 400 mg Tablet 400 mg PO BID albuterol sulfate [ProAir HFA] 90 mcg/actuation Hfa Aerosol Inhaler 1 - 2 puff Inhalation PRN PRN sertraline 100 mg tablet 100 mg PO DAILY acetaminophen 500 mg tablet 500 mg PO Q6H PRN (Reason: pain) Qty: 60 2RF ibuprofen 600 mg tablet 600 mg PO TID PRN (Reason: pain) Qty: 60 0RF lisinopril 10 mg tablet 1 tab PO 1XD Patient Comments: TAKE 1 TABLET BY MOUTH EVERY DAY Discharge Instructions Additional Instructions: You were seen in the emergency department for your abdominal pain. Your CAT scan fortunately showed no sign of any dangerous processes in your abdomen. Your ultrasound showed no sign of ovarian torsion. As we discussed, if you develop any worsening symptoms or if you begin vomiting do not stop please return to the emergency department. Otherwise please follow-up with your primary care provider in the next week. Stand Alone Forms: Portal Information HPI General Date/Time Provider Initiated Documentation: 05/21/25 12:01. HPI Narrative: [facility] This is an uncomfortable appearing normothermic and not tachycardic 44-year-old female with right lower quadrant pain concerning for ureterolithiasis versus diverticulitis for which patient will undergo CT abdomen pelvis with IV contrast. No dysuria nor frequency making my suspicion low for UTI. Given prior history of appendectomy my suspicion is quite low for acute appendicitis. No right upper quadrant tenderness to suggest increased risk for acute cholecystitis. No abnormal vaginal discharge to suggest sexually transmitted infection. Given abdominal tenderness I was not suspicious for ACS so I did not order an ECG. No rash to abdomen to suggest zoster. Ovarian torsion remains on the differential so if CT is reassuring will consider transvaginal ultrasound. No history of inflammatory bowel disease to suggest exacerbation. Patient has not been vomiting to suggest SBO. No pain out of proportion to suggest necrotizing soft tissue infection. No history of atrial fibrillation to suggest increased risk for mesenteric ischemia. Based on age and lack of peripheral vascular disease my suspicion for AAA is low. Will treat with ketorolac and ondansetron. 1:[address] scan with no acute abnormalities in the abdomen or pelvis. POC negative urine test. Reassuring comprehensive metabolic panel no BHAVYA. No acute LFT abnormalities. Normal reassuring lipase. Urinalysis small leuk esterase nitrite negative no hematuria. CBC lacks anemia thrombocytopenia and leukocytosis. No bacteriuria. 3:[address] abdomen pelvis reassuring against any acute intra-abdominal process. Patient has no pericholecystic fluid nor any radiodense cholelithiasis. No nephrolithiasis. No free air. Given no right upper quadrant tenderness I did not feel that the patient required right upper quadrant ultrasound. 3:30 PM I met the patient again following her transvaginal ultrasound which lacked any signs of ovarian torsion. She did have a left ovarian cyst versus dominant follicle but I do not think that this is the cause of her pain. She had not been vomiting in the emergency department. She does have a primary care provider. We discussed that she should follow-up with her PCP in the next week. We also discussed that she should return to the ED if she developed any worsening pain any nausea or vomiting that did not stop or if she had any other concerns. She understood her return indications and was discharged with empiric trial of expectant outpatient management. HPI This is a patient with a history of prediabetes presenting with abdominal pain. The patient reports experiencing severe abdominal pain on Tuesday while working, which was accompanied by nausea. The pain subsided over the weekend, leaving a residual dull ache. However, the pain intensified yesterday. During a colposcopy appointment at [facility], a urine sample was taken, and she was informed that she did not have a urinary tract infection (UTI). She was advised to consult her primary care physician. Today, the pain has worsened. Her primary care physician ruled out kidney involvement and suggested a CT scan. She was informed that an earlier scan could be obtained if she visited the emergency room. She reports no history of similar pain, kidney stones, or rashes on her abdomen. She reports no fever, vomiting, diarrhea, chest pain, or breathing difficulties. The pain is localized to her hip and radiates across her stomach. She has no burning sensation during urination or abnormal vaginal discharge. Despite taking Tylenol and ibuprofen, the pain persists. She has no appetite and has only consumed coffee and a raspberry sandwich cookie today. PAST SURGICAL HISTORY: Appendectomy 2 years ago. Retains gallbladder. Exam General: Well-appearing in no acute distress speaking in complete sentences. Head: Normocephalic, atraumatic. Eye: Extraocular eye movements intact. No conjunctival injection. No scleral icterus. Ear, nose, mouth, throat: Grossly normal inspection. Normal voice, handling secretions normally. Neck: Trachea midline. Cardiovascular: Well-perfused distal extremities. Respiratory: Nonlabored respiration. Clear lungs bilaterally. Gastrointestinal: Nondistended abdomen. Soft. Minimal right lower quadrant tenderness. No rebound. No guarding. No rash to abdomen. Musculoskeletal: No edema. Moving all 4 extremities spontaneously. Skin: Normal for age and race, grossly normal temperature and turgor. No acute rash. Neurologic: Alert and appropriate, no apparent acute deficits. Psychiatric: Mood and manner are appropriate. Grooming and personal hygiene are appropriate. Related Data Home Medications Medication Instructions Recorded Confirmed loratadine 10 mg disintegrating 10 mg PO DAILY 02/06/16 05/21/25 tablet (Claritin RediTabs) acyclovir 400 mg tablet 400 mg PO BID 08/07/18 05/21/25 albuterol sulfate 90 mcg/actuation 1 - 2 puff inhalation PRN PRN 08/07/18 05/21/25 aerosol inhaler (ProAir HFA) acetaminophen 500 mg tablet 500 mg PO Q6H PRN pain #60 tabs 04/14/21 05/21/25 ibuprofen 600 mg tablet 600 mg PO TID PRN pain #60 tabs 04/14/21 05/21/25 lisinopril 10 mg tablet 1 tab PO 1XD 07/13/22 05/21/25 sertraline 100 mg tablet 100 mg PO DAILY 02/14/23 05/21/25 beclomethasone dipropionate 40 40 mcg inhalation .Q4-6H PRN 08/18/23 05/21/25 mcg/actuation aerosol inhaler naproxen sodium 220 mg capsule 220 mg PO BID PRN 08/18/23 05/21/25 (Aleve) oxybutynin chloride 5 mg tablet 5 mg PO DAILY 08/18/23 05/21/25 nystatin-triamcinolone 100,000 1 applic topical BID #60 grams 11/22/23 05/21/25 unit/g-0.1 % topical cream pantoprazole 40 mg tablet,delayed 40 mg PO DAILY 04/09/25 05/21/25 release Previous Rx's Medication Instructions Recorded acetaminophen 500 mg tablet 500 mg PO Q6H PRN pain #60 tabs 04/14/21 ibuprofen 600 mg tablet 600 mg PO TID PRN pain #60 tabs 04/14/21 nystatin-triamcinolone 100,000 1 applic topical BID #60 grams 11/22/23 unit/g-0.1 % topical cream Allergies Allergy/AdvReac Type Severity Reaction Status Date / Time No Known Allergies Allergy Unverified 05/21/25 12:05 General MARCIN: 3 PFSH All Active Problems (Updated 05/21/25 @ 15:34 by John Paul Ellis MD) Cyst of left ovary (Acute) Acute right lower quadrant pain (Acute) Vulvar pruritus (Acute) Stress incontinence (Acute) Paresthesia (Acute) Exercise induced bronchospasm (Acute) Essential hypertension (Acute) Impaired fasting glucose (Acute) Nonulcer dyspepsia (Acute) Pain in right foot (Acute) Generalized hyperhidrosis (Acute) Tremor (Acute) Moderate major depression (Acute) Pain, joint, shoulder, right (Acute) Snoring (Acute) Herpes simplex virus (HSV) infection (Acute) Trigger finger, right middle finger (Acute) S/P Release: 04/14/2021 High ankle sprain of left lower extremity (Acute) Medical History (Updated 05/21/25 @ 15:34 by John Paul Ellis MD) Constipation BRITTANY (stress urinary incontinence, female) trying kegels Abnormal Pap smear of cervix Colpo 05/20/2025-ECC plus biopsy Pap due 03/2025 -04/09/2025, LSIL–positive high risk HPV colpo 03/22/2024–ECC -did not survive processing repeat due Feb 2024- done 02/21/2024 L HORACIO- Feb 2023: ASCUS/HPV+ -->colp benign January 2018: NIL/HPV- December 2016: NIL/HPV- December 2015: NIL/HPV+ 2011: wnl Hemorrhoids (02/06/16) Obesity Surgical History Status post laparoscopic appendectomy Tubal Ligation, section Social History (Updated 04/09/25 @ 12:54 by Arabella Morillo RN) Smoking/Tobacco Use Status: Former Tobacco Use Second Hand Exposure: No Smoking risk assessment performed?: Yes Alcohol Intake: never Drug use: Daily Substance use type: marijuana Details: last used 04/13/21. Sexually active: Yes Do you think of yourself as: straight/heterosexual Current gender identity: female What type of physical activity do you participate in: none Do you feel safe at home: Yes Do you feel safe in your relationship?: Yes
[2025-05-21 12:04] VITALS: BP 163/84; PULSE 96; RESP 15; TEMP 36.8; O2SAT 94
--- NOTE | 2025-05-21 12:15 | DI.CT_ITS ---
Exam(s) CT ABDOMEN PELVIS W EXAM: CT ABDOMEN PELVIS W CLINICAL HISTORY: right lower quadrant pain. TECHNIQUE: Imaging Protocol: Axial computed tomography images with coronal and sagittal reformatted images were created and reviewed CONTRAST MATERIAL: Intravenous: Omnipaque 350 Contrast volume:100 ml Oral: yes no COMPARISON: CT ABD PELVIS WITH CONTRAST from 09/09/[address] ABDOMEN PELVIS W from 09/04/2020 FINDINGS: ABDOMEN and PELVIS: Lung Bases: No acute findings. Liver: Prvd-ms-pnqlboyy hepatic steatosis. No suspicious mass. Gallbladder and biliary tract: No radiodense calculus. No wall thickening or pericholecystic fluid. No biliary dilation. Pancreas: Normal density. No abnormal calcifications or inflammatory process. No evidence of mass. Spleen: Normal. Kidneys: Normal size, contour and axis. No radiodense stones. No obstructive uropathy. No suspicious masses seen. Adrenal glands: No masses seen. Vasculature: Abdominal aorta non-dilated. Soft tissues: Tiny fat containing umbilical hernia. Bladder: No gross wall thickening. No calculi.No focal mass. Bowel: No obstruction. No bowel wall thickening. Suture material at the base of the cecum. Normal quantity of stool. Peritoneal cavity: No ascites. No focal collection. No mesenteric inflammatory response. No free air. Bones: Unremarkable for age. Reproductive organs: Unremarkable. Lymph nodes: No pathologically enlarged lymph nodes. IMPRESSION:: No acute abnormality in the abdomen or pelvis. RADIATION DOSE DELIVERED: Total DLP DATA REPOSITORY: All CT scans at this facility are submitted to the National Radiology Data Registry (NRDR) Dose Index Registry (DIR) with the [employer] (A[employer]). RADIATION OPTIMIZATION: All CT scans at this facility use at least one of these dose optimization techniques: automated exposure control; mA and/or kV adjustment per patient size (includes targeted exams where dose is matched to clinical indication); or iterative reconstruction.
[2025-05-21] MEDS: Normal Saline 500 ML IV (12:57)
[2025-05-21] MEDS: Ketorolac 15 MG/ML VIAL IVP (12:58)
[2025-05-21] MEDS: Ondansetron 4 MG/2 ML VIAL IVP (12:58)
[2025-05-21 13:11] LABS: Abs Immature Grans 0.02 10^3/uL (0.0-0.06); HCT 37.1 % (36.0-46.0); HGB 12.1 g/dL (11.2-15.7); Immature Grans % 0.2 %; MCH 26.4 pg (27.0-33.0); MCHC 32.6 % (32.0-36.0); MCV 81 fL (80-95); MPV 9.8 fL (8.0-11.0); Platelet Count 327 10^3/uL (130-400); RBC 4.58 10^6/uL (3.93-5.22); RDW 13.0 % (11.7-14.6); RDW-SD 38.1 fL; WBC 9.89 10^3/uL (4.4-10.8)
[2025-05-21 13:25] LABS: Lipase 24 U/L (<53)
[2025-05-21] MEDS: Normal Saline - Diluent 50 ML VIAL IJ (13:25)
[2025-05-21] MEDS: Omnipaque 350 MG/ML 100 ML BTL IJ (13:25)
[2025-05-21] MEDS: Normal Saline Flush 10 ML SYR IVP (13:25)
[2025-05-21 13:27] LABS: ALT 13 U/L (10-49); AST 19 U/L (<34); Albumin 4.5 g/dL (3.4-5.0); Alkaline Phosphatase 94 U/L (46-116); Anion Gap 9.6 mmol/L (3-11); BUN 7 mg/dL (9-23); Bilirubin, Total 0.30 mg/dL (0.2-1.2); CO2 26.4 mmol/L (20.0-31.0); Calcium 9.0 mg/dL (8.3-10.6); Chloride 105 mmol/L (98-107); Glucose 134 mg/dL (74-106); Potassium 3.5 mmol/L (3.5-5.1); Sodium 141 mmol/L (136-145); Total Protein 7.2 g/dL (5.7-8.2)
[2025-05-21 13:34] LABS: Glucose Negative (Negative)
[2025-05-21 13:41] LABS: C & S Indicated? No; RBC Negative HPF (0-2); WBC 0-2 HPF (0-5)
--- NOTE | 2025-05-21 13:51 | DI.US_ITS ---
Exam(s) US PELVIS TRANSVAGINAL EXAM: US PELVIS TRANSVAGINAL CLINICAL HISTORY: Right lower quadrant pain TECHNIQUE: Transabdominal and transvaginal imaging was performed using standard protocol. COMPARISON: CT CT ABDOMEN PELVIS W from 05/21/2025 FINDINGS: UTERUS: Anteverted. 8.8 x 4.8 x 5 point cm Endometrium: 13 mm Myometrium: Unremarkable. Cervix: Unremarkable nabothian cysts. OVARIES: Right: Cyst or mass: None. Left: Cyst or mass: 4.1 x 2.0 x 2.3 centimeter cyst versus dominant follicle. DOPPLER: Color: Symmetric and uniform flow to both ovaries. No hyperemia. CUL-DE-SAC: Free fluid: None. IMPRESSION: 1. Normal-appearing uterus with endometrial stripe within normal limits. 2. Left ovarian cyst versus dominant follicle. No evidence of torsion. DATA REPOSITORY:
== END 2025-05-21 16:16 | disposition home or self-care (01) ==
PROVIDERS: Emergency Provider Emergency Medicine; PCP Nurse Practitioner Family
DX: R10.31 Right lower quadrant pain (principal); N83.292 Other ovarian cyst, left side
CPT/HCPCS: 99284; 99285; 81025; 96374; 96375; 80053; 83690; 74177; 76830; 76856; 81003; 81015; 85025; J1885; J2405; J3490